=== PATIENT | male | born 1945 | race Caucasian/White ===

== ENCOUNTER 2024-02-02 21:43 | Inpatient (IN) | payer MEDICARE, BC, SELFPAY ==
[2024-02-02] VITALS (7 sets, daily range): BP systolic 105–151; BP diastolic 61–81; BMI 23.9
--- NOTE | 2024-02-02 16:08 | CM ---
CM was consulted for Eliquis pricing. CM spoke with patient's pharmacy and confirmed cost of $71. CM will provide Eliquis coupon to patient. CM will await final disposition.
--- NOTE | 2024-02-02 16:50 | W.PN.UPDATE ---
Update Note
Progress Note Update
Contacted by ED regarding patients RLE DVT
History of intracranial hemorrhage by report
RLE venous duplex demonstrates occlusive thrombus of the right common femoral, femoral, popliteal, and peroneal veins.
I have asked the ED to obtain a CT venogram of the abdomen/pelvis to evaluate the iliac veins and IVC.
Need to clarify if he is a candidate for anticoagulation given his history of
Will need CT head, neurology, neurosurgery input
Not a candidate for tpa given his history of intracranial hemorrhage. Unclear if mechanical thrombectomy is an option but need to clarify anticoagulation first. May need IVC filter (IR).
Chadd Dahl III, MD
[facility] Vascular Surgery
[phone] (mlrj)
[2024-02-02 17:12] LABS: % Basophils 0.3 % (0-2); % Eosinophils 0.7 % (0-6); % Immature Granulocytes 0.6 % (0-0.5); % Lymphocytes 19.4 % (20.5-51.1); % Monocytes 11.8 % (1.7-9.3); % Neutrophils 67.2 % (42.2-75.2); Absolute Eosinophils 0.1 10^3/uL (0-0.7); Absolute Lymphocytes 1.3 10^3/uL (1.2-3.4); Absolute Monocytes 0.8 10^3/uL (0.1-0.6); Absolute Neutrophils 4.6 10^3/uL (1.4-6.5); Hematocrit 39.2 % (39.0-52.0); Hemoglobin 13.5 g/dL (13.0-18.0); Mean Corp Hgb Conc. 34.4 g/dL (33.0-37.0); Mean Corpuscular Hgb 34.2 pg (27.0-31.0); Mean Corpuscular Volume 99.2 fL (80.0-94.0); Mean Platelet Volume 8.6 fL (7.4-10.4); Nucleated Red Blood Cells % 0 % (-); Platelet Count 206 10^3/uL (130-400); Red Blood Cell Count 3.95 10^6/uL (4.70-6.10); Red Cell Dist. Width 12.8 % (11.5-14.5); White Blood Cell Count 6.9 10^3/uL (4.8-10.8)
[2024-02-02 17:22] LABS: INR 1.16; PT 14.9 Sec (11.4-14.6)
[2024-02-02 17:23] LABS: APTT 34.8 Sec (23.4-35.0)
[2024-02-02 17:26] LABS: ALT (SGPT) 25 U/L (0-50); AST (SGOT) 29 U/L (17-59); Albumin 3.6 g/dl (3.5-5.0); Alkaline Phosphatase 82 U/L (38-126); Blood Urea Nitrogen 19 mg/dl (9-20); Calcium 8.9 mg/dl (8.4-10.2); Carbon Dioxide 32 mmol/L (22-30); Chloride 105 mmol/L (98-107); Glucose 80 mg/dl (70-99); Potassium 4.2 mmol/L (3.5-5.1); Sodium 141 mmol/L (135-145); Total Bilirubin 0.6 mg/dl (0.2-1.3); Total Protein 6.4 g/dl (6.3-8.2); eGFR > 60.00
--- NOTE | 2024-02-02 18:42 | ED.GENMED ---
History of Present Illness
General
Chief Complaint: DVT/Possible Blood Clot
Source: patient and family
Exam Limitations: none
Time Seen by Provider: 02/02/24 15:40
Nursing documentation reviewed up to this point in time: agreed with
History of Present Illness
History of Present Illness:
78 y/o M
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
had covid 2 weeks ago, was hospitlized, having trouble walking, went to rehab for some physical therpay but has been home and family noticed swelling righ tloewr extremity
remote history of dvt years ago
had US outpatient ordered by PCP today and has extensive DVT in RLE, common femoral, femoral, popliteal, peroneal veins
pt has no cp, sob
he is on keppra
sees neurologist out of [facility]'
apparently had head ct 2 weeks ago when he was having trouble walking while admitted and it was 'negative' according to the
no fever,chills, abdominal pain,
leg is perfused.
Past History
Past History
ED Past Medical History: HTN, Hypercholesterolemia, Other (ICH) and Other (dvt, seizure)
Social History
Tobacco: Non-smoker
Alcohol: None
Drug: None
Personal:
Living: with family
Phy Exam
Physical Exam
Physical Exam:
GENERAL: Alert , in no apparent distress
EYE: pupils equal and reactive
NECK: Supple
ENT: o/p clr, mmm.
CARDIAC: Regular rate and rhythm .
dp pulse normal right
perfused
warm
LUNGS: Clear breath sounds bilaterally, no acute respiratory distress, no wheezes/rales/rhonchi
ABDOMEN: Soft, without focal tenderness, no r/g, no cvat, normal bowel sounds
NEUROLOGICAL: Alert and oriented, no focal neuro deficits
SKIN: Warm and dry, skin intact.
MUSCULOSKELETAL: mod swelling calf, soft, no compartment syndrome, sensation intact
PSYCH: Normal and appropriate interaction.
Course
Orders/Labs/Results
Orders:
Orders
02/02/24 16:01
Case Management Consult ONCE
Case Management Consult: Other
02/02/24 16:26
CT Pe/abd/pel W Urgent
Reason For Exam: extensive dvt; VENOGRAM
02/02/24 16:29
Electrocardiogram (*1) Urgent
Reason for Study: Other
Other Reason for Exam: dvt
EKG- Treatment ONCE
02/02/24 17:01
Complete Blood Count/With Diff Urgent
Comprehensive Metabolic Panel Urgent
PTT Urgent
Prothrombin Time Urgent
02/02/24 18:34
CT Head W/o Iv Contrast Urgent
Comment:
Reason For Exam: h/o ICH
02/02/24 20:[address] Non Medication Order As Directed
Physician Order: PTT 6 hours after initial start of Heparin infusion
02/02/24 20:45
Heparin 76240 Units/250 ml 25,000 units in 250 ml IV PER PROTOCOL
Weight to be used for heparin protocol in kilograms (kg):: 78.9
Protocol:: DVT/PE
PTT Goal Range to be used:: PTT 73 to 111 seconds
Order type:: Initial
INITIAL Infusion Dose (UNITS/KG/hr) & then follow protocol:: 18 units/kg/hr
Infusion Dose in UNITS/hr & then follow protocol (UNITS/hr):: 1,400
INFUSION RATE in mL/hr & then follow protocol (mL/hr):: 14
For DVT/PE algorithm, re-bolus for low PTT?: No
PTT less than or equal to 64 seconds:: No Re-bolus. Increase by 300 units/hr (+ 3mL/hr)
PTT 64.1 to 72.9 seconds:: No Re-bolus. Increase by 200 units/hr (+ 2mL/hr)
PTT 73 to 111 seconds:: Target Range. No change in rate.
PTT 111.1 to 130.9 seconds:: Decrease rate by 200 units/hr (- 2 mL/hr)
PTT 131 to 199.9 seconds:: HOLD for 1 hr. Then decrease by 200 units/hr (- 2mL/hr)
PTT greater than or equal to 200 seconds:: HOLD for 2 hrs & Notify Provider. Then decrease by 300 units/hr
(- 3mL/hr)
Lab follow-up:: Each change, PTT q6h until 2 consecutive are therapeutic. Then
PTT daily.
02/02/24 21:10
Admit/Transfer Patient As Directed
Co-Sign Provider:
Level of Care: Inpatient admission
Assign to:: Medical/Surgical
Physician / Group: Hospitalist
Diagnosis: RLE DVT, RLL subsegmantal PE
Reason for Hospitalization: DVT/PE
Expected length of stay greater than two midnights?: Yes
ELOS- Estimated Length of Stay in days: 2
I certify the patient meets the requirements for IP care: Yes
PRN Pain Medication Management As Directed
May give lesser potent ordered pain med per pt: Yes
preference::
Protocol:: Medication orders for pain may be administered in a
manner that supports deferring to patient preference
when the pt is:
- Requesting an ordered lesser potent pain medication.
Least to most potent pain medications are defined
as: acetaminophen < NSAID < tramadol < opioids
(morphine, oxycodone, hydromorphone).
- Requesting a lesser dose of the same medication IF
ORDERED.
- Requesting a less intrusive route of administration
if both routes are prescribed by the provider (PO <
IV).
02/02/24 21:11
Code Status As Directed
Resuscitation Status: Full Code
02/02/24 21:14
Heparin 3,200 units IV PRN PRN
Heparin 6,300 units IV PRN PRN
02/02/24 21:15
Heparin [id number] Units/250 ml 25,000 units in 250 ml .ROUTE .STK-MED
02/02/24 21:30
Levetiracetam [Keppra] 750 mg PO BID
02/02/24 22:00
Buspirone [Buspar] 5 mg PO TID
Flush (0.9% Sodium Chloride) [Flush (Nss)] See Dose Instructions IV PER PROTOCOL
02/03/24 08:00
FOLic ACID [Folvite] 1 mg PO DAILY
levetiracetam 750 mg PO BID
magnesium oxide 400 mg PO DAILY
02/03/24 18:00
Atorvastatin [Lipitor] 10 mg PO QPM
Abnormal Lab Results
02/02/24
17:01
RBC 3.95 L 10^6/uL
(4.70-6.10)
MCV 99.2 H fL
(80.0-94.0)
MCH 34.2 H pg
(27.0-31.0)
Absolute Monos (auto) 0.8 H 10^3/uL
(0.1-0.6)
Immature Gran % 0.6 H %
(0-0.5)
Lymphocytes % 19.4 L %
(20.5-51.1)
Monocytes % 11.8 H %
(1.7-9.3)
PT 14.9 H Sec
(11.4-14.6)
Carbon Dioxide 32 H mmol/L
(22-30)
02/02/24 17:01
02/02/24 17:01
Vital Signs
Initial and Last Documented VS:
Initial Vital Signs
Temp Pulse Resp BP Pulse Ox
98.2 F 77 18 111/61 98
02/02/24 15:01 02/02/24 15:01 02/02/24 15:01 02/02/24 15:01 02/02/24 15:01
Last Documented Vital Signs
Temp Pulse Resp BP Pulse Ox
98.2 F 81 14 113/77 98
02/02/24 15:01 02/02/24 20:15 02/02/24 19:26 02/02/24 20:10 02/02/24 20:15
MDM/Problems Addressed
Differential Diagnosis Includes:
dvt, pe,
MDM/Problems Addressed:
lydiaheikekevin hollandmanolo 78 y/o M
had covid 2 weeks ago, hospitalized, a bit immobile; has had RLE swelling
had outpatietn US with clot common femoral, femoral, popliteal, peroneal
pt 2years ago had spontaneous ICH on asa x 2, is on keppra, seen by neuro at [facility]
i spoke with vascular (sonia vale) who recommended ct a/p iliac and we included the chest too and then would defer AC after neuro consult
i spoke with [employer] neuro territory sales consultant but he was unhelpful, didn't know the patient and didn't know about his previous ICH
consutled neuro here (dr. taylor) who said ct head is neg, then heparin drip, no bolus, repeat head ct in the AM;
pt's c/a/p CT shows subsegmental PE; no other clot burden proximally in abd; hemo stable; head ct neg;
heparin drip
*Critical Care Note
Total Time (30-74mins, 75-104mins- exclusive of procedures): Not Applicable
ED Attending Note
-
Portions of this chart may have been created with voice recognition software.� Occasional wrong word or��sound alike� substitutions may have occurred due to the inherent limitations of voice recognition software.
Discharge Plan
Departure
Patient Disposition: Admit
Date of Disposition: 02/02/24
Time of Disposition: 19:51
Admit to: Telemetry
Presentation/result/management discussed w/ accepting MD/DO: Hospitalist
Condition: Fair
Covid-19: Not Applicable
Discharge Problem:
DVT (deep venous thrombosis)
Prescriptions:
No Action
atorvastatin 10 mg Tablet
10 mg PO QPM
levetiracetam 750 mg Tablet
750 mg PO BID
buspirone 5 mg tablet
5 mg PO TID
folic acid 1 mg Tablet
1 mg PO DAILY
magnesium oxide 400 mg magnesium Tablet
400 mg PO DAILY
Interventions
Interventions:
*Risk Screen - Suicide Last Done: 02/02/24 15:01
*General Assessment Last Done: 02/02/24 15:01
*Neglect/Abuse Screening Last Done: 02/02/24 15:01
ED- Cardiac Assessment Last Done: 02/02/24 18:02
ED- Pulmonary Assessment Last Done: 02/02/24 18:02
ED-Peripheral Vascular Assessment Last Done: 02/02/24 18:02
ED-Skin Assessment Last Done: 02/02/24 18:02
Discharge Date and Time
Print Language: THAI
--- NOTE | 2024-02-02 20:54 | HPS.HSE ---
Family Physician
-
Family Physician: Edinson Jackson
Chief Complaint
-
Right lower extremity swelling
History of Present Illness
This is a 78-year-old male was past medical history of intracranial bleeding while on aspirin,Hyperlipidemia, recent diagnosis of COVID 2 weeks ago for which he was hospitalized and immobile presenting to the emergency department with right lower
extremity swelling and outpatient ultrasound with a clot in the right common femoral, femoral, popliteal and peroneal clots.
Due to his prior brain injury the patient is moist oriented. He is alert and oriented x 3 but cannot provide much significant history. He denies having any chest pain shortness of breath. He denies any calf tenderness or pain in the lower
extremities. Besides a hospitalization for COVID 2 weeks ago he denies any recent travels. He denies any prior history of DVT. Unclear whether he has been on anticoagulation in the past.
In the ED the patient was afebrile, hemodynamically stable and in no acute distress. CT of the head was negative. He had a CT of the abdomen pelvis which showed the extent of the clot to the distal right common femoral. He also has a small right
lower lobe subsegmental PE. His ECG showed normal sinus rhythm with a known right bundle which is unchanged from prior. Chemistries were normal. CBC was unremarkable.
Medical History
Past Medical History
Past Medical History: Reports Other (spontaneous intracranial hemorrhage)
Past Surgical History: Reports None
Social History
Tobacco: Non-smoker
Alcohol: None
Drug: None
Personal:
Living: With Family
Employment: Not Employed
Family History
Family History: Not pertinent
Allergies / Home Medications
Allergies reflects when Allergies were last updated in [employer].
Home Medications with original date entered in [employer]
Allergy/Medication List:
Allergies
Allergy/AdvReac Type Severity Reaction Status Date / Time
Sulfa (Sulfonamide Allergy Unknown Verified 02/02/24 15:01
Antibiotics)
Home Medications
atorvastatin 10 mg tablet 10 mg PO QPM 12/10/21
levetiracetam 750 mg tablet 750 mg PO BID 12/10/21
buspirone 5 mg tablet 5 mg PO TID 02/02/24
folic acid 1 mg tablet 1 mg PO DAILY 02/02/24
magnesium oxide 400 mg PO DAILY 02/02/24
Review of Systems
-
History Source: Patient
Constitutional: Reports No Symptoms
EENT: Reports No Symptoms
Respiratory: Reports No Symptoms
Cardiac: Reports No Symptoms
Abdomen/GI: Reports No Symptoms
: Reports No Symptoms
Musculoskeletal: Reports No Symptoms
Skin: Reports No Symptoms
Neurological: Reports No Symptoms
Endocrine: Reports No Symptoms
Hematologic/Lymphatic: Reports No Symptoms
Psych: Reports No Symptoms
Physical Exam
Vital Signs
Vital Signs
Temp Pulse Resp BP Pulse Ox
98.2 F 81 14 113/77 98
02/02/24 15:01 02/02/24 20:15 02/02/24 19:26 02/02/24 20:10 02/02/24 20:15
Physical Exam
General: Well Developed, Well Nourished, No Apparent Distress, Comfortable and Conversant
HEENT: NormoCephalic, Anicteric, Moist mucous membranes and Atraumatic
Respiratory: Clear
Cardiac: S1/S2 and Regular Rhythm
GI: Soft, Non Tender, Non Distended and Normal Bowel Sounds
Rectal: Deferred by Provider
Genito-urinary: Deferred by me
Musculoskeletal: No Clubbing, No Cyanosis and Edema, Right Lower Extremity
Skin: Warm
Neuro: Awake, Alert and Oriented (x2)
Hematologic/Lymphatic: No Lymphadenopathy
Psych: Calm
Laboratory Results
-
02/02/24 17:01
02/02/24 17:01
Laboratory Results
PT 14.9 Sec (11.4-14.6) H 02/02/24 17:
INR 1.16 02/02/24 17:
APTT 34.8 Sec (23.4-35.0) 02/02/24 17:
Total Bilirubin 0.6 mg/dl (0.2-1.3) 02/02/24 17:
AST 29 U/L (17-59) 02/02/24 17:
ALT 25 U/L (0-50) 02/02/24 17:
Alkaline Phosphatase 82 U/L (38-126) 02/02/24 17:01
Data Reviewed
-
Diagnostic Radiology: Image Personally Visualized and interpreted
CT Scan: Report Reviewed by me
Medical Tests (Nuc Med, Echo, EKG etc): Image Personally Visualized and interpreted
Lab Data: Labs Reviewed by me
Impression/Plan
-
IMPRESSION:
PLAN:
ACUTE RLE DVT -patient with a history of intracranial bleed with reduced spontaneous on aspirin (2 years ago, on seizure prophylaxis with Keppra and will review he was recently hospitalized 2 weeks ago in the setting of COVID presents to the
emergency department with right lower extremity swelling. He is otherwise asymptomatic. He had a outpatient ultrasound which shows DVT to the common femoral. CT of the abdomen pelvis confirms DVT to the common femoral. There also appears to be a
right lower lower lobe subsegmental PE. He has no respiratory symptoms. He has no chest pain. He has no lower extremity pain. Pulses are intact bilaterally. Due to history of intracranial bleed this case was discussed with neurology. He had a
CT of the head which was negative. Due to negative CT the patient could be anticoagulated starting with heparin.
- admit to med surg
- heparin gtt w/o bolus with close monitoring.
- likely provoked VTE in setting of hospitalization would hold off further w/u for now
IC
- continue statin and keppra for sez ppx
Full Code
[2024-02-02] MEDS: HEPARIN 25000 UNITS/250 ML IV (21:22)
[2024-02-02] MEDS: KEPPRA 750 MG PO (23:04)
[2024-02-02] MEDS: BUSPAR 5 MG PO (23:04)
[2024-02-03 03:39] LABS: Hematocrit 37.3 % (39.0-52.0); Hemoglobin 13.2 g/dL (13.0-18.0); Mean Corp Hgb Conc. 35.4 g/dL (33.0-37.0); Mean Corpuscular Hgb 34.7 pg (27.0-31.0); Mean Corpuscular Volume 98.2 fL (80.0-94.0); Mean Platelet Volume 8.7 fL (7.4-10.4); Platelet Count 196 10^3/uL (130-400); Red Cell Dist. Width 12.5 % (11.5-14.5); White Blood Cell Count 7.4 10^3/uL (4.8-10.8)
[2024-02-03 03:59] LABS: APTT 161.6 Sec (23.4-35.0)
[2024-02-03 06:00] VITALS: BMI 23.8
[2024-02-03 08:00] VITALS: BP 125/69
[2024-02-03] MEDS: KEPPRA 750 MG PO ×2 (08:22→20:31)
[2024-02-03] MEDS: MAG-TAB SR 84 MG PO (08:22)
[2024-02-03] MEDS: FOLVITE 1 MG PO (08:22)
[2024-02-03] MEDS: BUSPAR 5 MG PO ×3 (08:24→21:56)
[2024-02-03 10:59] LABS: APTT 156.3 Sec (23.4-35.0)
--- NOTE | 2024-02-03 12:42 | CM ---
Patient seen at bedside along with Larisa.
dX: RLE DVT, RLL Subsegmental PE
PMH: Intracranial bleed 2 yrs ago, HDL
CT head negative
states patient was receiving home services thorough [facility].
She also states approximately 01/24 was at [facility] after having Covid.
CM received a call from Lindsey Carson from [facility].
Referral to [facility] placed in Care port.
PLAN: Discharge when medically stable, TOÑA with [facility].
[facility]
Fax #: [phone]
--- NOTE | 2024-02-03 12:49 | W.PN.HOSP.TC ---
Today's Communication/Plan
-
see note
Assessment / Plan
Assessment / Plan
CT a/p
Isolated small to filling defect in the right lower lobe lateral subsegmental pulmonary artery, consistent with pulmonary embolism. No evidence to suggest right ventricular heart strain.
Right lower extremity thrombus is demonstrated to the level of the distal common femoral vein. Otherwise, external iliac and common iliac veins are patent, without evidence of thrombus. No IVC thrombus.
Venous doppler
Occlusive thrombus of the right common femoral, femoral, popliteal, and peroneal veins.

1. Right lower extremity DVT
Right lower lobe PE
History of PE in 2011
-Clot likely from recent COVID infection related hypercoagulability
-Patient have history of PE in 2011 and was on short course of oral Eliquis therapy
-Patient had new onset of right leg swelling and had an outpatient ultrasound showing right common femoral/femoral/popliteal/peroneal vein DVT
-On CT abdomen pelvis incidentally patient noted to having right lower lobe PE as well. No signs of RV strain
-Patient was started on heparin drip
-Patient has history of hemorrhagic stroke in , no further issues afterward.
-Hematology evaluation requested in light of history of brain bleed and need of anticoagulation
2. Urinary incontinence
H/o urinary retention
-For treatment of COVID infection patient was admitted to [facility] earlier this month
-Patient required catheterization for urinary retention which was removed. Patient had some hematuria/UTI per verbal report from family
-Currently patient incontinent and continue to pull off condom catheter
-Renal bladder ultrasound ordered. Check UA.
-Continue monitoring postvoid residual and may require Dahl catheter insertion if retaining urine
-Family requested urology evaluation discussed that we will need to follow-up in office
3. History of hemorrhagic CVA
-Get records from [facility] to further determine the extent of bleed
-No residual weakness and patient able to ambulate without walker or cane according to spouse
-Patient on levetiracetam for seizure prophylaxis with history of hemorrhagic CVA although no reported seizures ever
4. HLD
-Maintain on atorvastatin
5. Anxiety/depression
-Continue on buspirone
DVT PPX - heparin drip
Full code
Care plan discussed with spouse at bedside
Total time spent : 53 mins
I personally saw and examined the patient.
I have reviewed all diagnostic interpretations and treatment plans as written.
Time includes patient management by me, time spent at the patients bedside, time to review lab and imaging results, discussing patient care, documentation in the medical record, and time spent with the family or caregiver and discussing care plan
with RN/Consultants.
Anticipated Discharge: 24 - 48 hours
Subjective/Interval History
-
Date of Service: February 03, 2024
Having urinary incontinence
Denies any right lower extremity pain/discomfort
No other issues reported overnight
Objective Data
-
Labs:
Laboratory Results
02/03/24 02/03/24 02/03/24
03:31 09:59 18:00
WBC 7.4
Hgb 13.2
Hct 37.3 L
Plt Count 196
APTT 161.6 H* 156.3 H* Pending
Vital Signs:
Vital Signs
Temp Pulse Resp BP Pulse Ox
97.9 F 75 16 125/69 97
02/03/24 08:00 02/03/24 08:00 02/03/24 08:00 02/03/24 08:00 02/03/24 08:00
I&O
02/02/24 02/03/24 02/04/24
06:59 06:59 06:59
Output Total 400 / 400
Balance -400 / -400
Review of Systems
-
Respiratory: Reports No Symptoms
Cardiac: Reports No Symptoms
Abdomen/GI: Reports No Symptoms
Physical Exam
-
General: No Apparent Distress and Comfortable
HEENT: Negative Oxygen
Respiratory: Clear to Auscultation
Cardiac: Regular Rhythm and S1/S2; Negative Murmur or Rub
GI: Soft, Nontender, Nondistended and Normal Bowel Sounds
Musculoskeletal: No Edema
Neuro: Awake, Alert, Oriented, No Motor Deficits and Nonfocal/Grossly Intact
Psych: Calm
--- NOTE | 2024-02-03 13:00 | PTCARENOTE ---
Pt PTT resulted at 11:00am 156.3, per protocol was held for 1hr and decrease 2ml/hr. Held heparin from 11:15-12:15, restarted at 12:15 at 10mls/hr per protocol. Next ptt draw/ lab at 1800 sechuled. plan of care ongoing. No s/s of distress noted.
--- NOTE | 2024-02-03 14:27 | CM ---
PCP: Edinson Jackson
Pharmacy: [facility] in [place]
Denies any food/utilities/housing/transportation insecurities.
[2024-02-03 14:45] VITALS: BP 129/69; PULSE 97
[2024-02-03 15:07] VITALS: BP 125/66
[2024-02-03] MEDS: LIPITOR 10 MG PO (17:03)
[2024-02-03 18:26] LABS: APTT 106.9 Sec (23.4-35.0)
[2024-02-03] MEDS: HEPARIN 25000 UNITS/250 ML IV (20:31)
[2024-02-03 23:27] VITALS: BP 119/66
[2024-02-04 01:26] LABS: APTT 115.1 Sec (23.4-35.0)
[2024-02-04] MEDS: SAPHRIS 2.5 MG SL (02:29)
[2024-02-04 07:58] VITALS: BP 124/73
[2024-02-04 08:22] LABS: Hematocrit 41.3 % (39.0-52.0); Hemoglobin 14.1 g/dL (13.0-18.0); Mean Corp Hgb Conc. 34.1 g/dL (33.0-37.0); Mean Corpuscular Hgb 34.2 pg (27.0-31.0); Mean Corpuscular Volume 100.2 fL (80.0-94.0); Mean Platelet Volume 8.8 fL (7.4-10.4); Platelet Count 204 10^3/uL (130-400); Red Blood Cell Count 4.12 10^6/uL (4.70-6.10); Red Cell Dist. Width 12.9 % (11.5-14.5); White Blood Cell Count 5.5 10^3/uL (4.8-10.8)
[2024-02-04 08:27] LABS: APTT 81.9 Sec (23.4-35.0)
--- NOTE | 2024-02-04 08:56 | W.PN.HOSP.TC ---
Addendum entered and electronically signed by Otto Amos MD 02/04/24 13:16:
I saw and evaluated the patient. I reviewed the resident�s note and agree with findings and plan as documented in the resident�s note.
There were no problems overnight except some episode of confusion.
Right LE DVT/RLL PE -likely from recent COVID related. Outpatient ultrasound showed blood clot.Currently on heparin drip. get records from [facility] regarding hospitalization in . will likely transition to Eliquis if agreed by hematology.
Urinary incontinence - Renal/bladder US neg. have condom catheter on. will need OP urology follow up and evaluation
PT evaluated and recommended SNF vs home HH
Original Note:
Today's Communication/Plan
-
Continue heparin for DVT
Check renal and bladder ultrasound
Assessment / Plan
Assessment / Plan
Impression:
78-year-old male presents with new onset right leg swelling, outpatient ultrasound demonstrating right leg DVT, also noted to have subsegmental RLL pulmonary embolism on CT
#Right lower extremity DVT
#Right lower lobe PE
-Clot likely from recent COVID infection related hypercoagulability
-Patient have history of PE in 2011 and was on short course of oral Eliquis therapy
-Patient had new onset of right leg swelling and had an outpatient ultrasound showing right common femoral/femoral/popliteal/peroneal vein DVT
-On CT abdomen pelvis incidentally patient noted to having right lower lobe PE as well. No signs of RV strain
-Patient was started on heparin drip, currently day 3
-Today patient is not short of breath, no pleuritic chest pain, no lower extremity swelling, erythema or pain on palpation
-Patient has history of hemorrhagic stroke in , no further issues afterward.
-Hematology evaluation for oral anticoagulation pending
#Urinary incontinence
-Patient has a history of urinary retention
-For treatment of COVID infection patient was admitted to [facility] earlier this month
-Patient required catheterization for urinary retention which was removed. Patient had some hematuria/UTI per verbal report from family
-Currently patient incontinent and continue to pull off condom catheter
-Renal bladder ultrasound pending.
-UA with reflex culture pending.
-Continue monitoring postvoid residual and may require Dahl catheter insertion if retaining urine
-Family requested urology evaluation discussed that we will need to follow-up in office
#History of hemorrhagic CVA
-Get records from [facility] to further determine the extent of bleed
-No residual weakness and patient able to ambulate without walker or cane according to spouse
-Patient on levetiracetam for seizure prophylaxis with history of hemorrhagic CVA although no reported seizures ever
#HLD
-Maintain on atorvastatin
#Anxiety/depression
-Continue on buspirone
Diet: Regular
DVT PPX - heparin drip
CODE STATUS: Full code
Anticipated Discharge: 24 - 48 hours
Subjective/Interval History
-
Date of Service: February 04, 2024
Nurse reports patient had episode of restless overnight, patient was reportedly pulling off his condom catheter and got mitts restraints
Patient currently not requiring mitts and was not restless during my exam in the morning
Objective Data
-
Labs:
Laboratory Results
02/04/24 02/04/24
01:06 07:45
WBC 5.5
Hgb 14.1
Hct 41.3
Plt Count 204
APTT 115.1 H 81.9 H
Vital Signs:
Vital Signs
Temp Pulse Resp BP Pulse Ox
97.1 F 86 16 124/73 99
02/04/24 07:58 02/04/24 07:58 02/04/24 07:58 02/04/24 07:58 02/04/24 07:58
I&O
02/03/24 02/04/24 02/05/24
06:59 06:59 06:59
Intake Total 2079
Output Total 400 / 400 1650 / 1650
Balance -400 / -400 430 / 430
Review of Systems
-
History Source: Patient
Constitutional: Reports No Symptoms
Respiratory: Reports No Symptoms; Denies Hemoptysis or Trouble Breathing
Cardiac: Reports No Symptoms
Abdomen/GI: Reports No Symptoms
Physical Exam
-
General: Well Developed, Well Nourished, No Apparent Distress, Comfortable and Conversant
Respiratory: Clear to Auscultation
Cardiac: Regular Rhythm and S1/S2
GI: Soft, Nontender, Nondistended and Normal Bowel Sounds
Musculoskeletal: No Edema and Other (No calf tenderness bilaterally, no swelling bilaterally, no erythema bilaterally)
Skin: Warm and Dry
Neuro: Awake, Alert, Oriented and AO x 3
Psych: Calm and Intact Judgement/Insight
Data Reviewed
-
CT Scan: Report Reviewed by me and Discussed with Physician
Labs: Labs Reviewed by me and Discussed with Physician
[2024-02-04] MEDS: BUSPAR 5 MG PO ×3 (08:59→20:40)
[2024-02-04] MEDS: FLOMAX 0.4 MG PO (08:59)
[2024-02-04] MEDS: FOLVITE 1 MG PO (08:59)
[2024-02-04] MEDS: KEPPRA 750 MG PO ×2 (08:59→20:39)
[2024-02-04] MEDS: MAG-TAB SR 84 MG PO (08:59)
[2024-02-04 14:42] LABS: APTT 86.4 Sec (23.4-35.0)
[2024-02-04 15:00] VITALS: BP 112/63
--- NOTE | 2024-02-04 15:00 | CON.ONC ---
Impression
Impression
Hx brain bleed
Extensive DVT provoked by COVID with hospitalization and immobilization
Plan
Plan
Case D/w pt's neurologist Dr. Jiménez at [facility] via [facility].
Recommends against anticoagulation unless no other option.
Pt's does not have a long life expectancy due to age, and has no symptoms or O2 req from PE. Risk vs benefit favors IVC filter placement rather than anticoagulation.
Please consult IR for filter.
Does not need follow up from my standpoint but we would be happy to see him down the road if Dr. Jackson wants to refer him for F/U.
Thank you for consultation.
Patient History
History of Present Illness
This is a 78-year-old male was past medical history of intracranial bleeding while on aspirin,Hyperlipidemia, recent diagnosis of COVID 2 weeks ago for which he was hospitalized and immobile presenting to the emergency department with right lower
extremity swelling and outpatient ultrasound with a clot in the right common femoral, femoral, popliteal and peroneal clots. Prior history of cerebral bleeds, pt of Dr. Jiménez, [facility]. Pt awake and alert but poor historian and requires for
history and decision-making.
Past-Medical/Surgical History
Past Medical History
Past Medical History: Reports Other (spontaneous intracranial hemorrhage)
Past Surgical History: Reports None
Social History
Tobacco: Non-smoker
Alcohol: None
Drug: None
Personal: , accompanied today by Larisa
Living: With Family
Employment: Not Employed
Family History
Family History: Not pertinent
Patient Medication
�Medication �Instructions �Recorded �Confirmed �Last Taken �Type
atorvastatin 10 mg tablet 10 mg PO QPM High Cholesterol 12/10/21 02/02/24 02/01/24 History
levetiracetam 750 mg tablet 750 mg PO BID Seizures 12/10/21 02/02/24 02/02/24 History
buspirone 5 mg tablet 5 mg PO TID Depression 02/02/24 02/02/24 02/02/24 History
folic acid 1 mg tablet 1 mg PO DAILY Supplement 02/02/24 02/02/24 02/02/24 History
magnesium oxide 400 mg PO DAILY Supplement 02/02/24 02/02/24 02/02/24 History
Active Medications
Generic Name Dose Route Start Last Admin
Trade Name Freq PRN Reason Stop Dose Admin
Acetaminophen 650 mg 02/02/24 23:53
Acetaminophen 325 Mg Tablet PO 03/01/24 23:52
Q4HPRN PRN
mild pain/SAENZ/temp> 100.4F
Atorvastatin Calcium 10 mg 02/03/24 18:00 02/03/24 17:03
Atorvastatin (Lipitor) 10 Mg Tablet PO 03/02/24 17:59 10 mg
QPM PABLITO Administration
Bisacodyl 10 mg 02/02/24 23:53
Bisacodyl 10 Mg Rectal Suppository RECTAL 03/01/24 23:52
[id number] PRN
constipation
Buspirone HCl 5 mg 02/02/24 22:00 02/04/24 08:59
Buspirone 5 Mg Tablet PO 03/01/24 21:59 5 mg
TID PABLITO Administration
Folic Acid 1 mg 02/03/24 08:00 02/04/24 08:59
Folic Acid 1 Mg Tablet PO 03/02/24 07:59 1 mg
DAILY PABLITO Administration
Heparin Sodium 25,000 units in 250 mls @ 0 mls/hr 02/04/24 08:00
Heparin 23640 Units/250 Ml IV
PER PROTOCOL PABLITO
Protocol
Per Protocol
Levetiracetam 750 mg 02/03/24 08:00 02/04/24 08:59
Levetiracetam 500 Mg Regular Release Tablet PO 03/02/24 07:59 750 mg
BID PABLITO Administration
Magnesium 84 mg 02/03/24 08:00 02/04/24 08:59
Magnesium Lactate 84 Mg Tablet PO 03/02/24 07:59 84 mg
DAILY PABLITO Administration
Polyethylene Glycol 17 grams 02/02/24 23:53
Polyethylene Glycol Powder 17 Grams Packet PO 03/01/24 23:52
DAILYPRN PRN
constipation
Senna/Docusate Sodium 1 tablet 02/02/24 23:53
Docusate W/Senna (Sushila-Colace) Tablet PO 03/01/24 23:52
BIDPRN PRN
constipation
Sodium Chloride 0 flush 02/02/24 22:00
Sodium Chloride 0.9% (Flush) Syringe IV 03/01/24 21:59
PER PROTOCOL PABLITO
Tamsulosin HCl 0.4 mg 02/03/24 13:02 02/04/24 08:59
Tamsulosin 0.4 Mg Capsule PO 03/02/24 12:59 0.4 mg
DAILY PABLITO Administration
Review of Systems
-
History Source: Family and Records
All Other Systems: Reviewed and Negative
Physical Exam
-
Awake, alert, non-toxic appearing
Heart RRR
Breath sounds clear
Abd soft, non-tender
Extrem RLE edema
Labs
Lab Results
WBC 5.5 10^3/uL (4.8-10.8) 02/04/24 07:45
RBC 4.12 10^6/uL (4.70-6.10) L 02/04/24 07:45
Hgb 14.1 g/dL (13.0-18.0) 02/04/24 07:45
Hct 41.3 % (39.0-52.0) 02/04/24 07:45
MCV 100.2 fL (80.0-94.0) H 02/04/24 07:45
MCH 34.2 pg (27.0-31.0) H 02/04/24 07:45
MCHC 34.1 g/dL (33.0-37.0) 02/04/24 07:45
RDW 12.9 % (11.5-14.5) 02/04/24 07:45
Plt Count 204 10^3/uL (130-400) 02/04/24 07:45
MPV 8.8 fL (7.4-10.4) 02/04/24 07:45
Abs Immat Gran (auto) 0.0 10^3/uL (0-0.05) 02/02/24 17:01
Absolute Neuts (auto) 4.6 10^3/uL (1.4-6.5) 02/02/24 17:01
Absolute Lymphs (auto) 1.3 10^3/uL (1.2-3.4) 02/02/24 17:01
Absolute Monos (auto) 0.8 10^3/uL (0.1-0.6) H 02/02/24 17:01
Absolute Eos (auto) 0.1 10^3/uL (0-0.7) 02/02/24 17:01
Absolute Basos (auto) 0.0 10^3/uL (0-0.2) 02/02/24 17:01
Immature Gran % 0.6 % (0-0.5) H 02/02/24 17:01
Neutrophils % 67.2 % (42.2-75.2) 02/02/24 17:01
Lymphocytes % 19.4 % (20.5-51.1) L 02/02/24 17:01
Monocytes % 11.8 % (1.7-9.3) H 02/02/24 17:01
Eosinophils % 0.7 % (0-6) 02/02/24 17:01
Basophils % 0.3 % (0-2) 02/02/24 17:01
Creatinine 0.8 mg/dL (0.7-1.3) 02/02/24 17:01
Vital Signs
Vital Signs
Temp Pulse Resp BP Pulse Ox
97.1 F 86 16 124/73 99
02/04/24 07:58 02/04/24 07:58 02/04/24 07:58 02/04/24 07:58 02/04/24 10:42
--- NOTE | 2024-02-04 16:05 | CM ---
Addendum entered by Lili Carlton 02/04/24 16:12:
[facility]
Fax #: [phone]
Original Note:
Patient seen at bedside with Larisa.
procedure tomorrow in IR for filter.
PT unable to see patient today.
states would like to take him back home with [facility].
Referral in care port.
PLAN: Discharge when medically stable to home with [facility].
to transport.
--- NOTE | 2024-02-04 16:37 | PTCARENOTE ---
Per IR pt to get an IVC filter placed tomorrow, cannot confirm time yet. No eating restrictions. will be contacted in the am.
[2024-02-04] MEDS: LIPITOR 10 MG PO (17:06)
[2024-02-04 23:34] VITALS: BP 126/69
[2024-02-05] VITALS (7 sets, daily range): BP systolic 90–138; BP diastolic 60–86; PULSE 79
[2024-02-05 06:14] LABS: APTT 36.4 Sec (23.4-35.0)
[2024-02-05 06:38] LABS: Hematocrit 40.1 % (39.0-52.0); Hemoglobin 13.8 g/dL (13.0-18.0); Mean Corp Hgb Conc. 34.4 g/dL (33.0-37.0); Mean Corpuscular Hgb 34.6 pg (27.0-31.0); Mean Corpuscular Volume 100.5 fL (80.0-94.0); Mean Platelet Volume 9.1 fL (7.4-10.4); Platelet Count 187 10^3/uL (130-400); Red Blood Cell Count 3.99 10^6/uL (4.70-6.10); Red Cell Dist. Width 13.1 % (11.5-14.5); White Blood Cell Count 7.2 10^3/uL (4.8-10.8)
[2024-02-05 07:01] LABS: Blood Urea Nitrogen 22 mg/dl (9-20); Carbon Dioxide 22 mmol/L (22-30); Chloride 106 mmol/L (98-107); Estimated Creatinine Clearance 69 ml/min; Glucose 88 mg/dl (70-99); Potassium 4.3 mmol/L (3.5-5.1); Sodium 141 mmol/L (135-145); eGFR > 60.00
[2024-02-05] MEDS: FLOMAX 0.4 MG PO (08:44)
[2024-02-05] MEDS: FOLVITE 1 MG PO (08:45)
[2024-02-05] MEDS: MAG-TAB SR 84 MG PO (08:45)
[2024-02-05] MEDS: BUSPAR 5 MG PO ×3 (08:45→20:44)
[2024-02-05] MEDS: KEPPRA 750 MG PO ×2 (08:45→20:44)
--- NOTE | 2024-02-05 12:18 | CM ---
Patient seen at bedside with .
IMM explained & signed. Placed in chart.
Await IR for filter procedure today.
PLAN: Discharge when medically stable to home with [facility].
to transport.
[facility]
Fax #: [phone]
--- NOTE | 2024-02-05 14:20 | W.PN.UPDATE ---
Update Note
Progress Note Update
I saw and evaluated the patient. I reviewed the resident�s note and agree with findings and plan as documented in the resident�s note.
No reported problems in night
CT a/p
Isolated small to filling defect in the right lower lobe lateral subsegmental pulmonary artery, consistent with pulmonary embolism. No evidence to suggest right ventricular heart strain.
Right lower extremity thrombus is demonstrated to the level of the distal common femoral vein. Otherwise, external iliac and common iliac veins are patent, without evidence of thrombus. No IVC thrombus.
Venous doppler
Occlusive thrombus of the right common femoral, femoral, popliteal, and peroneal veins.

1. Right lower extremity DVT
Right lower lobe PE
History of PE in 2011
-Clot likely from recent COVID infection related hypercoagulability
-Patient have history of PE in 2011 and was on short course of oral Eliquis therapy
-Patient had new onset of right leg swelling and had an outpatient ultrasound showing right common femoral/femoral/popliteal/peroneal vein DVT
-On CT abdomen pelvis incidentally patient noted to having right lower lobe PE as well. No signs of RV strain
-Patient has history of hemorrhagic stroke in , no further issues afterward.
-Hematology discussed with primary neurology/neurosurgery who recommended patient to get IVC filter placement. Heparin drip stopped.
-IRAD called for IVC placement and will get it today
2. Urinary incontinence
H/o urinary retention
-For treatment of COVID infection patient was admitted to [facility] earlier this month
-Patient required catheterization for urinary retention which was removed. Patient had some hematuria/UTI per verbal report from family
-Currently patient incontinent and continue to pull off condom catheter
-Renal bladder ultrasound ordered. Check UA.
-Continue monitoring postvoid residual and may require Dahl catheter insertion if retaining urine
-Family requested urology evaluation discussed that we will need to follow-up in office
3. History of hemorrhagic CVA
-Get records from [facility] to further determine the extent of bleed
-No residual weakness and patient able to ambulate without walker or cane according to spouse
-Patient on levetiracetam for seizure prophylaxis with history of hemorrhagic CVA although no reported seizures ever
4. HLD
-Maintain on atorvastatin
5. Anxiety/depression
-Continue on buspirone
6. Memory problems
-Patient with significant issues remembering things. Likely component of vascular dementia
-BCAT scoring would help better objectively quantify.
DVT PPX - SCD
Full code
--- NOTE | 2024-02-05 14:32 | W.PN.HOSP.TC ---
Today's Communication/Plan
-
IR consult for IVC filter placement
Assessment / Plan
Assessment / Plan
Impression:
78-year-old male presents with new onset right leg swelling, outpatient ultrasound demonstrating right leg DVT, also noted to have subsegmental RLL pulmonary embolism on CT
#Right lower extremity DVT
#Right lower lobe PE
-Clot likely from recent COVID infection related hypercoagulability
-Patient have history of PE in 2011 and was on short course of oral Eliquis therapy
-Patient had new onset of right leg swelling and had an outpatient ultrasound showing right common femoral/femoral/popliteal/peroneal vein DVT
-On CT abdomen pelvis incidentally patient noted to having right lower lobe PE as well. No signs of RV strain
-Patient was started on heparin drip, currently day 4
-Today patient is not short of breath, no pleuritic chest pain, no lower extremity swelling, erythema or pain on palpation
-Patient has history of hemorrhagic stroke in , no further issues afterward.
-Hematology evaluation for oral anticoagulation
-Hematology decided, based on risk versus benefit factors the patient would receive an IVC filter versus oral anticoagulation
-IR consulted for IVC filter placement
#Urinary incontinence
-Patient has a history of urinary retention
-For treatment of COVID infection patient was admitted to [facility] earlier this month
-Patient required catheterization for urinary retention which was removed. Patient had some hematuria/UTI per verbal report from family
-Currently patient incontinent and continue to pull off condom catheter
-Renal bladder ultrasound demonstrated no hydronephrosis, suspicious renal masses or evidence of stones, mildly distended urinary bladder
-UA with reflex culture pending.
-Continue monitoring postvoid residual and may require Dahl catheter insertion if retaining urine
-Family requested urology evaluation discussed that we will need to follow-up in office
#History of hemorrhagic CVA
-Get records from [facility] to further determine the extent of bleed
-No residual weakness and patient able to ambulate without walker or cane according to spouse
-Patient on levetiracetam for seizure prophylaxis with history of hemorrhagic CVA although no reported seizures ever
#HLD
-Maintain on atorvastatin
#Anxiety/depression
-Continue on buspirone
Diet: Regular
DVT PPX - heparin drip
CODE STATUS: Full code
Anticipated Discharge: 24 - 48 hours
Subjective/Interval History
-
Date of Service: February 05, 2024
Objective Data
-
Labs:
Laboratory Results
02/05/24
05:09
WBC 7.2
Hgb 13.8
Hct 40.1
Plt Count 187
APTT 36.4 H
Sodium 141
Potassium 4.3
Chloride 106
Carbon Dioxide 22
BUN 22 H
Creatinine 0.9
Glucose 88
Calcium 9.0
Vital Signs:
Vital Signs
Temp Pulse Resp BP Pulse Ox
97.4 F 85 18 134/67 98
02/05/24 07:10 02/05/24 07:10 02/05/24 07:10 02/05/24 07:10 02/05/24 07:10
I&O
02/04/24 02/05/24 02/06/24
06:59 06:59 06:59
Intake Total 2079 1620 / 1620
Output Total 1650 / 1650 2725 / 2725
Balance 430 / 430 -1105 / -1105
Review of Systems
-
Unable to obtain full review of systems at this time due to: Dementia
Physical Exam
-
General: Well Developed, Well Nourished and Comfortable
Respiratory: Clear to Auscultation
Cardiac: Regular Rhythm and S1/S2
GI: Soft, Nontender, Nondistended and Normal Bowel Sounds
Skin: Warm and Dry
Psych: Calm and Intact Judgement/Insight
Data Reviewed
-
Labs: Labs Reviewed by me and Discussed with Physician
[2024-02-05] MEDS: LIPITOR 10 MG PO (17:44)
[2024-02-05] MEDS: TYLENOL 650 MG PO (20:50)
[2024-02-06 07:05] VITALS: BP 109/65
[2024-02-06 07:19] LABS: Hematocrit 41.6 % (39.0-52.0); Hemoglobin 14.1 g/dL (13.0-18.0); Mean Corp Hgb Conc. 33.9 g/dL (33.0-37.0); Mean Corpuscular Hgb 33.1 pg (27.0-31.0); Mean Corpuscular Volume 97.7 fL (80.0-94.0); Platelet Count 199 10^3/uL (130-400); Red Blood Cell Count 4.26 10^6/uL (4.70-6.10); Red Cell Dist. Width 13.2 % (11.5-14.5)
[2024-02-06] MEDS: MAG-TAB SR 84 MG PO (07:41)
[2024-02-06] MEDS: FLOMAX 0.4 MG PO (07:42)
[2024-02-06] MEDS: BUSPAR 5 MG PO (07:42)
[2024-02-06] MEDS: FOLVITE 1 MG PO (07:42)
[2024-02-06] MEDS: KEPPRA 750 MG PO (07:42)
[2024-02-06 08:05] LABS: Blood Urea Nitrogen 21 mg/dl (9-20); Calcium 9.2 mg/dl (8.4-10.2); Carbon Dioxide 23 mmol/L (22-30); Chloride 105 mmol/L (98-107); Estimated Creatinine Clearance 77 ml/min; Glucose 89 mg/dl (70-99); Potassium 3.9 mmol/L (3.5-5.1); Sodium 142 mmol/L (135-145); eGFR > 60.00
--- NOTE | 2024-02-06 08:45 | W.PN.HOSP.TC ---
Addendum entered and electronically signed by Otto Amos MD 02/06/24 13:11:
I saw and evaluated the patient. I reviewed the resident�s note and agree with findings and plan as documented in the resident�s note.
Patient resting comfortable in bed.
No problem post IVC placement.
Patient spouse updated about follow-up plan with urology for incontinence workup.
Patient cleared by physical therapy for home discharge with home health.
Discharge home w today
Original Note:
Today's Communication/Plan
-
Monitor for postop complications
Discharge
Assessment / Plan
Assessment / Plan
Impression:
78-year-old male presents with new onset right leg swelling, outpatient ultrasound demonstrating right leg DVT, also noted to have subsegmental RLL pulmonary embolism on CT
#Right lower extremity DVT
#Right lower lobe PE
-Clot likely from recent COVID infection related hypercoagulability
-Patient have history of PE in 2011 and was on short course of oral Eliquis therapy
-Patient had new onset of right leg swelling and had an outpatient ultrasound showing right common femoral/femoral/popliteal/peroneal vein DVT
-On CT abdomen pelvis incidentally patient noted to having right lower lobe PE as well. No signs of RV strain
-Heparin discontinued on day 3
-Today patient is not short of breath, no pleuritic chest pain, no lower extremity swelling, erythema or pain on palpation
-Patient has history of hemorrhagic stroke in , no further issues afterward.
-Hematology evaluation for oral anticoagulation
-Hematology decided, based on risk versus benefit factors the patient would receive an IVC filter versus oral anticoagulation
-Status post IVC filter placement, postop day 1, patient reports slight pain
#Urinary incontinence
-Patient has a history of urinary retention
-For treatment of COVID infection patient was admitted to [facility] earlier this month
-Patient required catheterization for urinary retention which was removed. Patient had some hematuria/UTI per verbal report from family
-Currently patient incontinent and continue to pull off condom catheter
-Renal bladder ultrasound demonstrated no hydronephrosis, suspicious renal masses or evidence of stones, mildly distended urinary bladder
-UA with reflex culture resulted with no growth
-Continue monitoring postvoid residual and may require Dahl catheter insertion if retaining urine
-Family requested urology evaluation discussed that we will need to follow-up in office
#Memory problems
-Patient significant issues remembering things, potentially component of vascular dementia
-PT OT evaluated the patient and said that he does have impaired cognition and needs 1 assist. Also has inability to perform activities of daily living by himself and does not scan for objects when walking.
#History of hemorrhagic CVA
-Get records from [facility] to further determine the extent of bleed
-No residual weakness and patient able to ambulate without walker or cane according to spouse
-Patient on levetiracetam for seizure prophylaxis with history of hemorrhagic CVA although no reported seizures ever
#HLD
-Maintain on atorvastatin
#Anxiety/depression
-Continue on buspirone
Diet: Regular
DVT PPX - heparin drip
CODE STATUS: Full code
Anticipated Discharge: Today
Subjective/Interval History
-
Date of Service: February 06, 2024
No acute events overnight patient had IVC filter placed yesterday
Patient reports slight pain but is manageable
Objective Data
-
Labs:
Laboratory Results
02/06/24
06:21
WBC 7.0
Hgb 14.1
Hct 41.6
Plt Count 199
Sodium 142
Potassium 3.9
Chloride 105
Carbon Dioxide 23
BUN 21 H
Creatinine 0.8
Glucose 89
Calcium 9.2
Vital Signs:
Vital Signs
Temp Pulse Resp BP Pulse Ox
97.4 F 95 19 138/78 97
02/05/24 23:13 02/05/24 23:13 02/05/24 23:13 02/05/24 23:13 02/05/24 23:13
I&O
02/05/24 02/06/24 02/07/24
06:59 06:59 06:59
Intake Total 1620 / 1620 1100 / 1100
Output Total 2725 / 2725 700 / 700
Balance -1105 / -1105 400 / 400
Review of Systems
-
History Source: Patient
Constitutional: Reports No Symptoms
Respiratory: Reports No Symptoms
Cardiac: Reports No Symptoms
Abdomen/GI: Reports No Symptoms
Physical Exam
-
General: Well Developed, Well Nourished, No Apparent Distress and Conversant
Respiratory: Clear to Auscultation
Cardiac: Regular Rhythm and S1/S2
GI: Soft, Nontender, Nondistended and Normal Bowel Sounds
Musculoskeletal: No Edema
Skin: Warm and Dry
Neuro: Awake
Psych: Calm
Data Reviewed
-
Labs: Labs Reviewed by me and Discussed with Physician
[2024-02-06 12:00] VITALS: BP 123/70
--- NOTE | 2024-02-06 12:40 | W.DCSUMMARY ---
Discharge Summary
Discharge Data
Date of Admission: 02/02/24
Date of Discharge: 02/06/24
-
Pending Results: No
Hospital Course
Discharging Physician : Dandre Romo
Disposition : Home with home health
Primary care physician : Dr. Jackson
Principal Discharge diagnosis : DVT
Chronic Discharge diagnosis : History of intracranial hemorrhage, urinary incontinence, pulmonary embolism, hyperlipidemia, anxiety/depression
Hospital Course : 78-year-old male past medical history of spontaneous intracranial hemorrhage was getting physical therapy at rehab when he was noticed to have right lower extremity swelling. Outpatient ultrasound was ordered which demonstrated an
extensive DVT in the right lower extremity, common femoral, femoral, popliteal, peritoneal veins and patient was advised to come to [place] emergency department for this. In ED patient Received a CT abdomen pelvis which demonstrated a extensive
DVT in the right lower extremity, pt was started on heparin drip and admitted to the floors for further management. Patient also received a CT head which was negative for any intracranial bleeding therefore he was deemed safe to be started on
anticoagulation while in the hospital. Patient received heparin for 3 days total. Patient also has a history of urinary incontinence, in the hospital patient was incontinent and continue to pull off his condom catheter. The family requested a
urologic evaluation and it was decided that the patient would follow-up for this as an outpatient. Patient received a UA with reflex culture which demonstrated no growth, he also had a renal bladder ultrasound which demonstrated no hydronephrosis,
renal masses, stones. During his stay hematology oncology was consulted regarding the need for oral anticoagulation. Due to patient's past history of intracranial hemorrhage risk benefit analysis demonstrated that he would be better served with an
IVC filter. IR was consulted for IVC filter placement. Patient received IVC filter placement on 02/05/2024 with no complications. Patient felt well after his procedure and was able to be discharged home with home health and follow-up with his
primary care physician within 1 week of discharge and urologist in 2 to 4 weeks. Patient will follow-up to get his IVC filter removed in approximately 6 months. During the meantime patient will get home PT/OT as well as home aides to help with his
care. Patient was discharged home with his and with home health care.
Important imaging findings :
02/02/24 Peripheral vascular US, Impression:
Occlusive thrombus of the right common femoral, femoral, popliteal, and peroneal veins.
02/02/24 CT abd/pelvis, impression:
Isolated small to filling defect in the right lower lobe lateral subsegmental pulmonary artery, consistent with pulmonary embolism. No evidence to suggest right ventricular heart strain.
Right lower extremity thrombus is demonstrated to the level of the distal common femoral vein. Otherwise, external iliac and common iliac veins are patent, without evidence of thrombus. No IVC thrombus.
Mild constipation.
Mild diverticulosis without acute diverticulitis.
Cholelithiasis. No CT evidence of acute cholecystitis.
02/02/[address] without contrast, impressions:
No acute intracranial abnormality noted.
No acute intracranial hemorrhage. No extra-axial collection. Advanced chronic microvascular white matter ischemic disease. Atrophy.
02/04/24 Renal US, impression:
No hydronephrosis, suspicious renal masses or evidence of renal calculus.
Mildly distended urinary bladder.
Procedure findings :
02/05/24 IVC filter placement, impression:
1. Successful placement of retrievable inferior vena cava filter.
2. The filter should be removed when no longer necessary, preferably within 3-6 months. The importance of filter removal was stressed to the patient.
Discharge Plan
-
Patient Disposition: Home with Home Care
Discharge Diagnosis/Procedures: RLE DVT, small PE, s/p IVC filter placement, urinary incontinence
Condition: Fair
Diet: Regular
Activity: As tolerated
Driving Restrictions: No driving
Bathing Restrictions: OK to Shower
Referrals:
Sujit Rollins MD [Active] - in two to four weeks
Edinson Jackson DO [Family Provider] - in one week
Prescriptions:
Continued
atorvastatin 10 mg Tablet
10 mg PO QPM
levetiracetam 750 mg Tablet
750 mg PO BID
buspirone 5 mg tablet
5 mg PO TID
folic acid 1 mg Tablet
1 mg PO DAILY
magnesium oxide 400 mg magnesium Tablet
400 mg PO DAILY
Discharge Orders:
Discharge Patient (As Directed); Ordered 02/06/24
Ordered By: Otto Amos
Discharge Date and Time
Discharge Date/Time: 02/06/24 12:22
Print Language: SYRIAC
--- NOTE | 2024-02-06 12:51 | CM ---
Met with patient and spouse at bedside to discuss discharge plan
reported she will transport patient home
Plan: Discharge to home with Home Health PT services with [facility]
== END 2024-02-06 12:22 | disposition home health service (06) | DRG 814 ==
LOC: 2 NORTH 21:43
PROVIDERS: Physician Assistant; Radiology Diagnostic Radiology; ADMITTING PHYSICIAN Internal Medicine; ATTENDING PHYSICIAN Hospitalist; EMERGENCY PHYSICIAN Emergency Medicine; FAMILY PHYSICIAN Family Medicine
PROC: 06H03DZ Insertion of Intraluminal Device into Inferior Vena Cava, Percutaneous Approach (ICD-10-PCS; 2024-02-05)
DX: D68.69 Other thrombophilia (principal); I26.93 Single subsegmental thrombotic pulmonary embolism without acute cor pulmonale; I82.411 Acute embolism and thrombosis of right femoral vein; I82.451 Acute embolism and thrombosis of right peroneal vein; I82.431 Acute embolism and thrombosis of right popliteal vein; F32.A Depression, unspecified; I10 Essential (primary) hypertension; E78.5 Hyperlipidemia, unspecified; K59.00 Constipation, unspecified; K57.30 Diverticulosis of large intestine without perforation or abscess without bleeding; K80.20 Calculus of gallbladder without cholecystitis without obstruction; F41.9 Anxiety disorder, unspecified; R32 Unspecified urinary incontinence; Z79.899 Other long term (current) drug therapy; Z86.16 Personal history of COVID-19; Z86.73 Personal history of transient ischemic attack (TIA), and cerebral infarction without residual deficits; Z86.711 Personal history of pulmonary embolism; Z88.2 Allergy status to sulfonamides
CPT/HCPCS: 37191; 70450; 71275; 74177; 76770; 80048; 80053; 85025; 85027; 85610; 85730; 93005; 93971; 96365; 97116; 97162; 97166; 99285; C1769; C1880; Q9967

== ENCOUNTER 2024-10-14 19:11 | Emergency (ER) | payer MEDICARE, BC, SELFPAY ==
[2024-10-14 19:21] VITALS: BP 123/64
[2024-10-14 19:55] LABS: % Basophils 0.2 % (0-2); % Eosinophils 0.5 % (0-6); % Immature Granulocytes 0.3 % (0-0.5); % Lymphocytes 20.6 % (20.5-51.1); % Neutrophils 70.4 % (42.2-75.2); Absolute Lymphocytes 1.2 10^3/uL (1.2-3.4); Absolute Monocytes 0.5 10^3/uL (0.1-0.6); Absolute Neutrophils 4.1 10^3/uL (1.4-6.5); Hematocrit 42.1 % (39.0-52.0); Hemoglobin 14.2 g/dL (13.0-18.0); Mean Corp Hgb Conc. 33.7 g/dL (33.0-37.0); Mean Corpuscular Hgb 33.9 pg (27.0-31.0); Mean Corpuscular Volume 100.5 fL (80.0-94.0); Mean Platelet Volume 9.1 fL (7.4-10.4); Nucleated Red Blood Cells % 0 % (-); Platelet Count 171 10^3/uL (130-400); Red Blood Cell Count 4.19 10^6/uL (4.70-6.10); Red Cell Dist. Width 12.8 % (11.5-14.5); White Blood Cell Count 5.8 10^3/uL (4.8-10.8)
[2024-10-14 19:56] VITALS: BMI 25.9
--- NOTE | 2024-10-14 19:58 | EDRN ---
Pt's says pt dx with vascular dementia recently. went into kitchen and found pt on the floor. Pt did not know how he landed on the floor at the time. Currently, pt says he caught his foot on an ottoman and fell. ahd hard time
getting pt up and when he tried to walk he was very unsteady 'heavy like he couldn't move his foot and he kept saying hold me, hold me.' Pt at his dinner and afterwards, he was unable to get up so called daughter who advised calling 911.
says pt was in the floor at most 5 minutes. Pt says he was sitting on the couch, got up to go to the kitchen and he thinks his foot got stuck under the ottoman and he fell. No head strike or loc. Pt denies injury from fall. No headache,
visual/speech disturbance (new - has hx aphasia), numbness/tingling, cp, sob, abd pain, n/v, dizziness, urinary symptoms, fever/chills/cough.
[2024-10-14 20:00] VITALS: BP 117/68
[2024-10-14 20:06] LABS: INR 1.03; PT 13.8 Sec (11.4-14.6)
[2024-10-14 20:07] LABS: APTT 27.1 Sec (23.4-35.0)
[2024-10-14 20:09] LABS: ALT (SGPT) 36 U/L (0-50); AST (SGOT) 37 U/L (17-59); Albumin 4.2 g/dl (3.5-5.0); Alkaline Phosphatase 79 U/L (38-126); Blood Urea Nitrogen 35 mg/dl (9-20); Calcium 9.2 mg/dl (8.4-10.2); Carbon Dioxide 26 mmol/L (22-30); Chloride 109 mmol/L (98-107); Estimated Creatinine Clearance 61 ml/min; Glucose 129 mg/dl (70-99); Potassium 3.9 mmol/L (3.5-5.1); Sodium 142 mmol/L (135-145); Total Bilirubin 0.6 mg/dl (0.2-1.3); Total Protein 7.1 g/dl (6.3-8.2); eGFR > 60.00
[2024-10-14] MEDS: KEPPRA 750 MG PO (20:47)
--- NOTE | 2024-10-14 21:03 | ED.GENMED ---
History of Present Illness
General
Chief Complaint: Seizure
Time Seen by Provider: 10/14/24 19:56
History of Present Illness
History of Present Illness:
79-year-old male with history of vascular dementia, history of PE with IVC filter, history of hemorrhagic stroke, chronic dysphagia, seizure disorder on keppra presenting to the emergency department for fall. Patient reports that he was in his
room. He believes that he missed a step and tripped. His heard the commotion, found him facedown on the ground. Notes that he was awake when she found him, however seemed out of it. When she got him up and standing, seemed to have
difficulty walking with heaviness to his feet. and daughter had a difficult time getting him into the car and down the stairs. Patient and reports that symptoms have since improved. Patient's last seizure was about 2 years ago. No
report of any prolonged postictal period or convulsion. He has been compliant with his medications. Patient currently denying any chest pain, difficulty breathing, musculoskeletal pain, abdominal pain, no report of any recent fever or illness. No
additional history obtained at this time.
Past History
Past History
ED Past Medical History: HTN, Hypercholesterolemia, Other (ICH) and Other (dvt, seizure)
Social History
Tobacco: Non-smoker
Alcohol: None
Drug: None
Personal:
Living: with family
Phy Exam
Physical Exam
Physical Exam:
General: Well-appearing, no clinical signs of dehydration, nontoxic and in no acute distress
HEENT: protecting airway, pupils equal and reactive
Neck: appears supple
CV: Normal heart rate, regular rhythm
Resp: No accessory muscle use, no increased work of breathing, lungs clear to auscultation bilaterally
Abd: Soft and non-distended, no tenderness to palpation, normal bowel sounds
Extremities: No deformities, no swelling, no erythema
Neuro: alert, no focal neurologic deficit
: deferred
Rectal: deferred
Psych: Normal affect
Skin: Intact
Course
Orders/Labs/Results
Orders:
Orders
10/14/24 19:42
ECG [Electrocardiogram (*1)] Urgent
Reason for Study: Fatigue / Weakness
Cardiology Consult: Unknown
10/14/24 19:43
EKG- Treatment ONCE
10/14/24 19:46
CT Cervical Spine W/o Iv Contr Urgent
Reason For Exam: fall
CT Head W/o Iv Contrast Urgent
Comment:
Reason For Exam: fall
10/14/24 19:49
Complete Blood Count/With Diff Urgent
Comprehensive Metabolic Panel Urgent
PTT Urgent
Comment: ADD ON
Prothrombin Time Urgent
10/14/24 19:51
Add On- LAB Urgent
Tests Added?: PTT
10/14/24 20:32
Levetiracetam [Keppra] 750 mg PO NOW STA
Abnormal Lab Results
10/14/24
19:49
RBC 4.19 L 10^6/uL
(4.70-6.10)
MCV 100.5 H fL
(80.0-94.0)
MCH 33.9 H pg
(27.0-31.0)
Chloride 109 H mmol/L
(98-107)
BUN 35 H mg/dl
(9-20)
Glucose 129 H mg/dl
(70-99)
10/14/24 19:49
10/14/24 19:49
Vital Signs
Initial and Last Documented VS:
Initial Vital Signs
Temp Pulse Resp BP Pulse Ox
98.4 F 97 20 123/64 99
10/14/24 19:21 10/14/24 19:21 10/14/24 19:21 10/14/24 19:21 10/14/24 19:21
Last Documented Vital Signs
Temp Pulse Resp BP Pulse Ox
98.4 F 79 14 120/65 99
10/14/24 19:21 10/14/24 21:53 10/14/24 21:53 10/14/24 21:53 10/14/24 21:53
MDM/Problems Addressed
MDM/Problems Addressed:
79-year-old male with history of vascular dementia, history of PE with IVC filter, history of hemorrhagic stroke, chronic dysphagia, seizure disorder on keppra presenting after an unwitnessed fall with subsequent fatigue. Vital signs on arrival are
normal.
On exam patient is resting comfortably, no acute distress or discomfort. He is currently asymptomatic. No physical signs of trauma. He is awake, alert, oriented, moving all extremities equally. Per , patient does have issues with balance
given prior stroke, frequent falls, had a fall 6 weeks ago. Do suspect component of mechanical etiology. Does not appear consistent with seizure or CVA. EKG obtained, relatively unchanged from prior. Plan for screening laboratory analysis and CT
brain imaging given patient's age and comorbidities, unwitnessed nature of fall. Hemodynamically stable at this time.
22:00 - Patient's labs are unremarkable. CT is negative for acute process. Patient remains stable and asymptomatic. Feel stable for discharge. Advise following up with his neurologist. Strict return precautions communicated to patient
verbalized understanding
*EKG
Interpreted by ED Provider?: Yes
EKG Intrepretation Date: 10/14/24
EKG Intrepretation Time: 21:07
Interpretation: normal
Comparison EKG: no changes (02/01/22)
Heart Rate: 86
Rate: normal
Rhythm: sinus
Interval: normal interval and other
QRS Pattern: other (RBBB and LAFB)
Ischemia: non-specific ST changes
*Critical Care Note
Total Time (30-74mins, 75-104mins- exclusive of procedures): Not Applicable
ED Attending Note
-
Portions of this chart may have been created with voice recognition software.� Occasional wrong word or��sound alike� substitutions may have occurred due to the inherent limitations of voice recognition software.
Discharge Plan
Departure
Prescriptions:
No Action
atorvastatin 10 mg Tablet
10 mg PO QPM
levetiracetam 750 mg Tablet
750 mg PO BID@0900,2100
buspirone 5 mg tablet
5 mg PO TID
folic acid 1 mg Tablet
1 mg PO DAILY
magnesium oxide 400 mg magnesium Tablet
400 mg PO DAILY
tamsulosin [Flomax] 0.4 mg Capsule
0.4 mg PO QPM
Referrals:
Edinson Jackson DO [Family Provider] -
Interventions
Interventions:
*Risk Screen - Suicide Last Done: 10/14/24 19:57
*General Assessment Last Done: 10/14/24 19:57
*Neglect/Abuse Screening Last Done: 10/14/24 19:57
*ED- Fall Risk Assessment Last Done: 10/14/24 19:57
ED- Pulmonary Assessment Last Done: 10/14/24 20:12
ED- Neurological Assessment Last Done: 10/14/24 20:12
ED- Cardiac Assessment Last Done: 10/14/24 20:12
Discharge Date and Time
Print Language: COMORAN
[2024-10-14 21:53] VITALS: BP 120/65
[2024-10-14 22:00] VITALS: BP 119/66
== END 2024-10-14 22:25 | disposition home or self-care (01) ==
LOC: EMR 19:11
PROVIDERS: EMERGENCY PHYSICIAN Student in an Organized Health Care Education/Training Program; FAMILY PHYSICIAN Family Medicine
DX: R53.83 Other fatigue (principal); G40.909 Epilepsy, unspecified, not intractable, without status epilepticus; I10 Essential (primary) hypertension; E78.00 Pure hypercholesterolemia, unspecified; F01.50 Vascular dementia, unspecified severity, without behavioral disturbance, psychotic disturbance, mood disturbance, and anxiety; Z86.73 Personal history of transient ischemic attack (TIA), and cerebral infarction without residual deficits; Z86.718 Personal history of other venous thrombosis and embolism; Z86.711 Personal history of pulmonary embolism
CPT/HCPCS: 99284; 70450; 72125; 80053; 85025; 85610; 85730; 93005

== ENCOUNTER → 2025-01-12 13:56 | Outpatient (REF) | payer MEDICARE, BC, SELFPAY | LOC: RAD 13:56 | PROVIDERS: ATTENDING PHYSICIAN Physician Assistant Medical | DX: S09.90XA Unspecified injury of head, initial encounter (principal); W19.XXXA Unspecified fall, initial encounter; R42 Dizziness and giddiness | CPT/HCPCS: 70450 ==

== ENCOUNTER 2025-01-31 12:59 | Emergency (ER) | payer MEDICARE, BC, SELFPAY ==
[2025-01-31 13:08] VITALS: BP 127/65
--- NOTE | 2025-01-31 14:59 | ED.GENMED ---
History of Present Illness
General
Chief Complaint: DVT/Possible Blood Clot
Time Seen by Provider: 01/31/25 14:10
History of Present Illness
History of Present Illness:
79-year-old male presents to the emergency department with his for evaluation of right lower leg swelling. They followed up with her material flow engineer today who was concerned for lack of palpable pulses in the right foot and thus sent him to the
emergency department. Patient has prior history of DVTs but due to bleeding issues/intracranial hemorrhage was discontinued from anticoagulation and has an IVC filter in place. Patient denies any pain at present.
Past History
Past History
ED Past Medical History: HTN, Hypercholesterolemia, Other (ICH) and Other (dvt, seizure)
Social History
Tobacco: Non-smoker
Alcohol: None
Drug: None
Personal:
Living: with family
Review of Systems
Review of Systems
Allergies reviewed?: Yes
All Other Systems: ROS reviewed and negative except as documented in HPI and ROS
Phy Exam
Physical Exam
Physical Exam:
GEN: Well appearing, NAD, WDWN
HEENT: Oral mucosa moist, no scleral icterus
Cardiac: Regular rate
Lung: No respiratory distress, no tachypnea
MSK: No gross deformity or injuries. Moderate edema of the right lower extremity however calf compartments are soft with no tenderness, right dorsalis pedis pulse noted by Doppler
Skin: Good color, no pallor or jaundice, no rashes
Neuro: AO x3, moves all extremities freely
Psych: Calm, cooperative
Course
Orders/Labs/Results
Orders:
Orders
01/31/25 13:22
Periph Venous Lwr Ext Rt US [US Periph Venous LOWER Ext RT] Urgent
Comment:
Reason For Exam: leg swelling
Vital Signs
Initial and Last Documented VS:
Initial Vital Signs
Temp Pulse Resp BP Pulse Ox
98.1 F 65 20 127/65 98
01/31/25 13:08 01/31/25 13:08 01/31/25 13:08 01/31/25 13:08 01/31/25 13:08
Last Documented Vital Signs
Temp Pulse Resp BP Pulse Ox
98.1 F 65 20 127/65 98
01/31/25 13:08 01/31/25 13:08 01/31/25 13:08 01/31/25 13:08 01/31/25 15:00
MDM/Problems Addressed
MDM/Problems Addressed:
Ultrasound reveals chronic appearing clot in the popliteal region, no evidence for acute clot. He does have a popliteal cyst which is likely the cause of his acute edema. He has no claudication symptoms and a pulse that is noted by Doppler.
Recommend Ortho follow-up regarding the Abdi's cyst
*Pulse Oximetry
SaO2: 98
Oxygen Mode of Delivery: Room air
Patient hypoxic: no
*Critical Care Note
Total Time (30-74mins, 75-104mins- exclusive of procedures): Not Applicable
ED Attending Note
-
Portions of this chart may have been created with voice recognition software.� Occasional wrong word or��sound alike� substitutions may have occurred due to the inherent limitations of voice recognition software.
Discharge Plan
Departure
Patient Disposition: Home (Routine Discharge)
Date of Disposition: 01/31/25
Time of Disposition: 15:00
Patient with high blood pressure during this ER visit?: No
Discharge Problem:
Abdi's cyst, Chronic deep vein thrombosis (DVT)
Instructions: Abdi's Cyst (DC)
Prescriptions:
No Action
atorvastatin 10 mg Tablet
10 mg PO QPM
levetiracetam 750 mg Tablet
750 mg PO BID@0900,2100
buspirone 5 mg tablet
5 mg PO TID
folic acid 1 mg Tablet
1 mg PO DAILY
magnesium oxide 400 mg magnesium Tablet
400 mg PO DAILY
tamsulosin [Flomax] 0.4 mg Capsule
0.4 mg PO QPM
Referrals:
Edinson Jackson DO [Family Provider, Family Practice]
Interventions
Interventions:
*Risk Screen - Suicide Last Done: 01/31/25 13:21
*General Assessment Last Done: 01/31/25 15:05
*Neglect/Abuse Screening Last Done: 01/31/25 13:21
*ED- Fall Risk Assessment Last Done: 01/31/25 15:05
*ED COVID-19 Vaccine History Last Done: 01/31/25 15:05
*Nursing Disposition Last Done: 01/31/25 15:05
ED- Cardiac Assessment Last Done: 01/31/25 14:12
ED- Pulmonary Assessment Last Done: 01/31/25 14:12
ED-Peripheral Vascular Assessment Last Done: 01/31/25 14:12
ED-Skin Assessment Last Done: 01/31/25 14:12
Discharge Date and Time
Discharge Date/Time: 01/31/25 15:07
Print Language: CZECH
== END 2025-01-31 15:07 | disposition home or self-care (01) ==
LOC: EMR 12:59
PROVIDERS: EMERGENCY PHYSICIAN Emergency Medicine; FAMILY PHYSICIAN Family Medicine
DX: M71.21 Synovial cyst of popliteal space [Baker], right knee (principal); I82.411 Acute embolism and thrombosis of right femoral vein; I82.431 Acute embolism and thrombosis of right popliteal vein; I10 Essential (primary) hypertension; E78.00 Pure hypercholesterolemia, unspecified; Z95.828 Presence of other vascular implants and grafts
CPT/HCPCS: 99284; 93971

== ENCOUNTER 2025-02-03 13:52 | Inpatient (IN) | payer MEDICARE, BC, SELFPAY ==
[2025-02-03] VITALS (18 sets, daily range): BP systolic 114–168; BP diastolic 50–138
--- NOTE | 2025-02-03 12:19 | ED.GENMED ---
History of Present Illness
General
Chief Complaint: Heart Rate Problem
Source: patient and spouse
Exam Limitations: dementia
Time Seen by Provider: 02/03/25 11:57
Nursing documentation reviewed up to this point in time: agreed with
History of Present Illness
History of Present Illness:
79-year-old male with history of vascular dementia, seizures, HLD, left total knee replacement 2018 presents from PCP office for low heart rate. He denies CP, SOB, weakness, dizziness.
at bedside states he has vascular dementia so she provided much of the history. Patient is receiving OT/PT twice a week for starting 2 weeks ago for right knee pain. Yesterday the therapists found patient's heart rate to be in the 40s on 2
separate occasions and heart rate normal on recheck. Patient called PCP and got an emergent appointment today with Dr. Gaines. At the office the heart rate was low again so he was sent here for evaluation.
History of seizures and TIA in 2022, admitted to [facility], placed on blood thinners for TIA and seizures continued even on Keppra. states that her neurologist told him his seizures were caused by micro hemorrhaging and all blood
thinners were discontinued, he had an IVC filter placed and has been on Keppra 750 mg twice daily since. His last seizure was 2022
Patient denies chest pain, trouble breathing, abdominal pain, nausea, weakness or dizziness.
Patient was here 3 days ago after a fall in shower and had a negative head CT.
Past History
Past History
ED Past Medical History: HTN, Hypercholesterolemia, Other (ICH) and Other (dvt, seizure)
Social History
Tobacco: Non-smoker
Alcohol: None
Drug: None
Personal:
Living: with family
Review of Systems
Review of Systems
Allergies reviewed?: Yes
All Other Systems: ROS reviewed and negative except as documented in HPI and ROS
Phy Exam
Physical Exam
Physical Exam:
GENERAL: No acute distress. A&Ox3.
CONSTITUTIONAL: Afebrile.
EYES: clear, conjunctivae normal
ENMT: moist mucus membranes, Pharynx nl
RESPIRATORY: Regular respirations, nonlabored, lungs clear.
CARDIOVASCULAR: Regular rate and rhythm, no murmurs, no rubs. Bradycardic heart rate
GI: Soft, nontender, normal BS
MUSCULOSKELETAL: Moves with ease. Well perfused.
SKIN: Warm, dry, pink
PSYCH: Normal mood and affect. Well kept, interactive and appropriate
NEUROLOGIC: Awake, alert and oriented. No focal neurological deficits. 42
Course
Orders/Labs/Results
Orders:
Orders
02/03/25 Lunch
NPO
Allow oral meds: Yes
Allow clear liquids: No
02/03/25 11:36
ECG [Electrocardiogram (*1)] Urgent
Reason for Study: Abnormal EKG
EKG- Treatment ONCE
02/03/25 12:31
CR Chest Portable - 1 View Urgent
Comment:
Reason For Exam: bradycardia
Reason Study Needs to be Portable: Unable to Transport
02/03/25 12:36
Complete Blood Count/With Diff Urgent
Comprehensive Metabolic Panel Urgent
Magnesium Urgent
TSH Reflex To Free T4 Urgent
Comment: ADD ON
Troponin I Urgent
02/03/25 12:44
Echo 2D MMode Color/Doppler Urgent
Reason for Study: heart block, predevice
02/03/25 13:06
Fentanyl Citrate/Pf [Sublimaze] 100 mcg .ROUTE .STK-MED ONE
Lidocaine HCl/Pf [Xylocaine-Mpf 1% Vial] 50 mg .ROUTE .STK-MED ONE
Midazolam HCl [Versed] 2 mg .ROUTE .STK-MED ONE
Ondansetron Injectable [Zofran] 4 mg .ROUTE .STK-MED ONE
Propofol [Diprivan] 40 ml .ROUTE .STK-MED
02/03/25 13:07
0.9% Sod Chloride 500 ml Irr [Nss Irrigation Bottle] 500 ml .ROUTE .STK-MED
CeFAZolin 1 GRAM [Ancef] 5 ml .ROUTE .STK-MED
02/03/25 13:11
CeFAZolin 1 GRAM [Ancef] 1 gram 0.9% Sod Chloride 250 ml Irr [Nss Irrigation Bottle] 250 ml IRRIG CATH
CeFAZolin 2 GRAM [Ancef] 2 grams in 10 ml IV CATH
02/03/25 13:31
Admit/Transfer Patient As Directed
Co-Sign Provider:
Level of Care: Inpatient admission
Assign to:: IVU
Physician / Group: CBC
Diagnosis: Heart block
Reason for Hospitalization: Heart block requiring pacemaker
Expected length of stay greater than two midnights?: Yes
ELOS- Estimated Length of Stay in days: 3
I certify the patient meets the requirements for IP care: Yes
PRN Pain Medication Management As Directed
May give lesser potent ordered pain med per pt: Yes
preference::
Protocol:: Medication orders for pain may be administered in a
manner that supports deferring to patient preference
when the pt is:
- Requesting an ordered lesser potent pain medication.
Least to most potent pain medications are defined
as: acetaminophen < NSAID < tramadol < opioids
(morphine, oxycodone, hydromorphone).
- Requesting a lesser dose of the same medication IF
ORDERED.
- Requesting a less intrusive route of administration
if both routes are prescribed by the provider (PO <
IV).
02/03/25 13:33
Code Status As Directed
Resuscitation Status: Full Code
02/03/25 13:45
PTT Urgent
Prothrombin Time Urgent
02/03/25 13:51
Add On- LAB Urgent
Tests Added?: TSH reflex to T4
02/03/25 13:57
DVT Contraindication [VTE Contraindication] Routine
VTE Mechanical Device Contraindication: DVT lower extremity
Pharmocologic Contraindication: Anticoagulation not yen
Activity As Directed
Activity Level: With Assistance
INT (Intravenous Needle Therapy) As Directed
Intake/ Output As Directed
Frequency: Per unit guidelines
Vital Signs As Directed
Frequency: Per unit guidelines
Weight As Directed
Frequency: Once
Abnormal Lab Results
02/03/25
12:36
RBC 3.78 L 10^6/uL
(4.70-6.10)
Hct 38.2 L %
(39.0-52.0)
MCV 101.1 H fL
(80.0-94.0)
MCH 34.4 H pg
(27.0-31.0)
Monocytes % 9.4 H %
(1.7-9.3)
Chloride 108 H mmol/L
(98-107)
BUN 21 H mg/dl
(9-20)
02/03/25 12:36
02/03/25 12:36
Vital Signs
Initial and Last Documented VS:
Initial Vital Signs
Temp Pulse Resp BP Pulse Ox
98.2 F 42 16 150/59 99
02/03/25 11:39 02/03/25 11:39 02/03/25 11:39 02/03/25 11:39 02/03/25 11:39
Last Documented Vital Signs
Temp Pulse Resp BP Pulse Ox
98.2 F 95 15 146/80 98
02/03/25 11:39 02/03/25 16:00 02/03/25 16:00 02/03/25 15:59 02/03/25 16:01
MDM/Problems Addressed
Differential Diagnosis Includes:
Second-degree heart block
MDM/Problems Addressed:
79-year-old male with history of vascular dementia, seizures, HLD, left total knee replacement 2018 presents from PCP office for low heart rate. He denies CP, SOB, weakness, dizziness.
at bedside states he has vascular dementia so she provided much of the history. Patient is receiving OT/PT twice a week for starting 2 weeks ago for right knee pain. Yesterday the therapists found patient's heart rate to be in the 40s on 2
separate occasions and heart rate normal on recheck. Patient called PCP and got an emergent appointment today with Dr. Gaines. At the office the heart rate was low again so he was sent here for evaluation.
History of seizures and TIA in 2022, admitted to [facility], placed on blood thinners for TIA and seizures continued even on Keppra. states that her neurologist told him his seizures were caused by micro hemorrhaging and all blood
thinners were discontinued, he had an IVC filter placed and has been on Keppra 750 mg twice daily since. His last seizure was 2022
Patient denies chest pain, trouble breathing, abdominal pain, nausea, weakness or dizziness.
Patient was here 3 days ago after a fall in shower and had a negative head CT.
Afebrile, NAD
EKG showing Mobitz 2 heartblock. Pt is hemodynamically stable
13:[address]
Dr[address] Pascual in and taking pt to label paster.
*Pulse Oximetry
SaO2: 99
Patient hypoxic: no
*Critical Care Note
Total Time (30-74mins, 75-104mins- exclusive of procedures): Not Applicable
ED Attending Note
-
Portions of this chart may have been created with voice recognition software.� Occasional wrong word or��sound alike� substitutions may have occurred due to the inherent limitations of voice recognition software.
Discharge Plan
Departure
Patient Disposition: MACHINE MAINTENANCE REPAIRER
Date of Disposition: 02/03/25
Time of Disposition: 13:40
Admit to: label paster
Presentation/result/management discussed w/ accepting /DO: Ankur
Condition: Fair
Discharge Problem:
Second degree heart block
Interventions
Interventions:
*Risk Screen - Suicide Last Done: 02/03/25 11:38
*General Assessment Last Done: 02/03/25 12:00
*Neglect/Abuse Screening Last Done: 02/03/25 11:38
*ED- Fall Risk Assessment Last Done: 02/03/25 12:00
*Nursing Disposition Last Done: 02/03/25 13:15
ED- Cardiac Assessment Last Done: 02/03/25 12:00
ED- Pulmonary Assessment Last Done: 02/03/25 12:00
Discharge Date and Time
Discharge Date/Time: 02/03/25 13:15
[2025-02-03 12:48] LABS: Hematocrit 38.2 % (39.0-52.0); Hemoglobin 13.0 g/dL (13.0-18.0); Mean Corp Hgb Conc. 34.0 g/dL (33.0-37.0); Mean Corpuscular Volume 101.1 fL (80.0-94.0); Nucleated Red Blood Cells % 0 % (-); Platelet Count 149 10^3/uL (130-400); Red Cell Dist. Width 12.5 % (11.5-14.5)
[2025-02-03 13:06] LABS: ALT (SGPT) 22 U/L (0-50); AST (SGOT) 24 U/L (17-59); Albumin 3.8 g/dl (3.5-5.0); Alkaline Phosphatase 69 U/L (38-126); Blood Urea Nitrogen 21 mg/dl (9-20); Calcium 8.9 mg/dl (8.4-10.2); Carbon Dioxide 29 mmol/L (22-30); Chloride 108 mmol/L (98-107); Glucose 91 mg/dl (70-99); Magnesium 2.3 mg/dl (1.6-2.3); Potassium 4.2 mmol/L (3.5-5.1); Sodium 140 mmol/L (135-145); Total Protein 6.6 g/dl (6.3-8.2); eGFR > 60.00
[2025-02-03 13:16] LABS: Troponin I < 0.012 ng/ml
--- NOTE | 2025-02-03 13:30 | HPS.HSE ---
Family Physician
-
Family Physician: Edinson Jackson
Primary Mechanical Specialist: Dr. Jules
Chief Complaint
-
Low heart rate
History of Present Illness
Tristin ('Eyad') Yogi is an 79-year-old male (known to Dr. Jules, his primary lorry weigher) with LAFB/RBBB, hyperlipidemia, previous CVA/spontaneous intracranial hemorrhage while on aspirin, DVTs, seizure disorder, basal cell cancer, DJD, and
previous COVID-19 infection (06/2021) presenting with low heart rate from his PCP. He endorses some fatigue and weakness. His he was having vertigo symptoms. Last month he fell while in the shower. She believes he passed out. He had a CT to
confirm he did not have any bleeding given his past medical history. Today EKG showed second-degree AV block with 2:1 AV conduction and a bifascicular block. He denies chest pain.
Medical History
Past Medical History
Past Medical History: Reports Arrhythmia (PVCs), Cancer (Squamous), CVA, Hypercholesterolemia, Seizures and Other (DVTs, cerebral amyloid angiopathy, PE s/p IVC filter)
Past Surgical History: Reports Orthopedic and Urological
Social History
Tobacco: Non-smoker
Alcohol: None
Drug: None
Personal:
Living: With Family
Employment: Retired ([employer])
Family History
Family History: Not pertinent
Allergies / Home Medications
Allergies reflects when Allergies were last updated in [employer].
Home Medications with original date entered in [employer]
Allergy/Medication List:
Home medications:
Atorvastatin 10 mg p.o. every evening
Buspirone 5 mg p.o. 3 times daily
Folic acid 1 mg p.o. daily
Keppra 750 mg twice daily
Magnesium oxide 400 mg p.o. daily
Tamsulosin 0.4 mg p.o. every evening
Allergies: Sulfa
Review of Systems
-
History Source: Patient
A 12 point ROS was completed and negative except as noted: Yes
Constitutional: Reports See HPI
EENT: Reports No Symptoms
Respiratory: Reports No Symptoms
Abdomen/GI: Reports No Symptoms
: Reports No Symptoms
Musculoskeletal: Reports No Symptoms
Skin: Reports No Symptoms
Neurological: Reports No Symptoms
Endocrine: Reports No Symptoms
Hematologic/Lymphatic: Reports No Symptoms
Psych: Reports No Symptoms
Physical Exam
Vital Signs
Vital Signs
Temp Pulse Resp BP Pulse Ox
98.2 F 39 12 120/76 97
02/03/25 11:39 02/03/25 13:00 02/03/25 13:00 02/03/25 13:00 02/03/25 12:45
Physical Exam
General: Well Developed, Well Nourished, No Apparent Distress and Comfortable
HEENT: NormoCephalic and Anicteric
Respiratory: Clear and Non Labored Respirations
Cardiac: S1/S2, Bradycardia and Peripheral Edema (Lower extremity edema [unable to assess pedal's wearing shoes])
Breast: Deferred by me
GI: Soft, Non Tender and Normal Bowel Sounds
Rectal: Deferred by Provider
Genito-urinary: Deferred by me
Musculoskeletal: No Clubbing and No Cyanosis
Skin: Warm and Dry
Neuro: Awake and Alert
Hematologic/Lymphatic: No Lymphadenopathy
Psych: Calm
Laboratory Results
-
02/03/25 12:36
02/03/25 12:36
Laboratory Results
Total Bilirubin 0.7 mg/dl (0.2-1.3) 02/03/25 12:36
AST 24 U/L (17-59) 02/03/25 12:36
ALT 22 U/L (0-50) 02/03/25 12:36
Alkaline Phosphatase 69 U/L (38-126) 02/03/25 12:36
Troponin I < 0.012 ng/ml 02/03/25 12:36
Data Reviewed
-
Diagnostic Radiology: Report Reviewed by me (EKG as above)
Medical Tests (Nuc Med, Echo, EKG etc): Report Reviewed by me
Lab Data: Labs Reviewed by me
Old Records: Reviewed
Impression/Plan
-
I/P: 79M LAFB/RBBB, hyperlipidemia, previous CVA/spontaneous intracranial hemorrhage while on aspirin, DVTs, seizure disorder, basal cell cancer, DJD, and previous COVID-19 infection (06/2021) presenting with low heart rate from his PCP.
Primary Mechanical Specialist: Dr. Jules
Heart block, 2:1
- Known LAFB/RBBB being followed in the outpatient setting by Dr. Jules
- He is not on any AV allie agents
- No electrolyte abnormalities, TSH pending
- Echocardiogram
Prior CVA, spontaneous ICH with aspirin
Cerebral amyloid angiopathy
Seizure disorder, continue Keppra
Hypercholesterolemia, continue atorvastatin
Prior PE, IVC filter in place, does not tolerate anticoagulation
DVTs, chronic, does not tolerate anticoagulation as above
Dementia
--- NOTE | 2025-02-03 13:45 | EDRN ---
1309 syrup machine laborer called to get report on patient shortly after Dr. Pascual left the bedside telling this RN, patient and his time was unknown when he would go to syrup machine laborer. While giving report Dr. Pascual arrived to this RN and I told the syrup machine laborer
nurse he is here and wants to go now. Took patient with monitor and defibrillator to the syrup machine laborer at that very moment. Upon arriving at the syrup machine laborer the table needed to be rebooted, while waiting this RN initiated a 20g IV in the left wrist while
syrup machine laborer staff shaved patient and readied supplies. This RN was unable to complete the preoperative checklist with the patient and his due to staff desire to have patient in the lab immediately. Patient stable throughout transport and transfer
to syrup machine laborer table.
[2025-02-03 14:04] LABS: INR 1.09; PT 14.4 Sec (11.4-14.6)
[2025-02-03 14:05] LABS: APTT 28.1 Sec (23.4-35.0)
--- NOTE | 2025-02-03 15:10 | ITS.CL.PACE ---
[facility] [employer] - Pacemaker Implant
Pacemaker Implant
Procedure Report:
Date of Procedure: February 03, 2025.
Procedure: Pacemaker Implantation. Left pper extremity venogram.
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
Performing physician: Yuval Pascual MD, [facility].
Implants:
Pulse Generator: Medtronic; Model# [id number]; Serial# [id number].
RV Lead: Medtronic; Model# 5076-52cm; Serial# [id number].
RV Lead: Medtronic; Model# 3830-69cm; Serial# [id number].
Technique: A time out was performed. A 10 mL upper extremity venogram demonstrated patent left axillary, cephalic, and subclavian veins. The procedure site was identified. The patient was anesthetized by the anesthesia service. Preoperative
cefazolin was administered. The patient was prepped and draped in the usual fashion. Local anesthetic was applied to the left prepectoral subcutaneous tissue. A 3 inch incision was made along the left deltopectoral groove. Dissection was carried to
the fascia. The left cephalic vein was easily isolated and proximal and distal control with 2-0 Vicryl suture. Using a micropuncture needle to access the cephalic vein under direct visualization a wire was advanced into the central circulation. A 7
Fr introducer was placed to allow two 0.35 J wires to be advanced. The leads were introduced with hemostatic peel away introducer sheaths. The RV lead was placed using utilizing the Szl.it His delivery catheter ([id number]) that was advanced to the
left bundle area as confirmed by fluoroscopy in the OCCITAN and LANDON projections. The lead tip was advanced. PVC morphology was reviewed. When a satisfactory location was identified (W pattern observed) the lead was screwed into position with serial
turns. Septal engagement was confirmed with gentle torque applied to the guide sheath. After each series of turns (2-3) unipolar sensed morphology and impedance, and paced morphology of V1 was analyzed. The lead was further advanced until
satisfactory morphology and electrical characteristics were confirmed. The RV lead was placed in the first location evaluated. The long guiding sheath was cut and removed from the RV without change in lead position, impedance, sensing, or capture.
The ventricular lead was secured to the pectoralis muscle and fascia with two 0-silk sutures. The atrial lead was placed in the right atrial appendage. 8 volt pacing from each lead did not capture the diaphragm. The atrial leads was secured to the
pectoralis muscle and fascia. A subcutaneous pocket was created with Bovie cautery. Hemostasis was excellent. The leads were appropriately attached to the device. The pocket was irrigated with antibiotic solution. The device and leads were placed in
the pocket. The incision was closed in three layers with absorbable suture. Steri-strips and a silver impregnated dressing were placed. Estimated blood loss was less than 20 ml. There were no complications. The device was then interrogated after
skin closure.
Lead Analysis:
RA lead: P: 2.4 mV; Threshold: 0.5 V @ 0.4 ms; Impedance: 677 ohms.
RV lead (unipolar): R: 6.4 mV; Threshold: 0.5 V @ 0.4 ms; Impedance: 400 ohms. Similar values bipoar.
Paced QRS characteristics: V1 has QR morphology and measures 134 ms in duration, LVAT (stim to peak V5/V6) is 60 ms, and R peak V1 to R peak V6 is 50 ms.
Final Programming: DDDR 60-130 bpm.
Conclusion: Uncomplicated Medtronic pacemaker implant. The pacing system is MRI conditional. Successful LBB area capture with excellent results.
Recommendation: Routine post pacemaker care.
cc: Edinson Stern DO and Neftali Jules MD.
--- NOTE | 2025-02-03 17:58 | PTCARENOTE ---
Received patient from PACU after PPM left upper chest. Patient placed closer to the nurse's station in room 2255 due to his hx of a recent fall and dementia. Oriented to the room and plan of care, bed alarm placed on the bed for safety, call saldivar in
reach. Dressing left upper chest is dry and intact. took the patient's belongings and will be back tomorrow.
[2025-02-03] MEDS: FLOMAX 0.4 MG PO (18:15)
[2025-02-03] MEDS: LIPITOR 10 MG PO (18:16)
[2025-02-03] MEDS: BUSPAR 5 MG PO ×2 (19:09→21:16)
[2025-02-03] MEDS: KEPPRA 750 MG PO (21:16)
--- NOTE | 2025-02-03 22:13 | PTCARENOTE ---
Patient received at change of shift resting in the bed. Left anterior chest wall aquacell and pressure dressing in place over PPM site. LUE immobilizer in place. The patient is confused and forgetful, alert to self only and is hard of hearing. Bed
alarm in place. The patient denies pain or discomfort. Requires frequent redirection as he attempts to exit the bed frequently. Vpaced on telemetry. Oxygen saturation 94% on room air. Call saldivar within reach. Bed alarm armed. Bed in lowest position
and wheels locked. Care ongoing.
[2025-02-04 02:07] VITALS: BP 152/82
[2025-02-04 02:12] VITALS: BMI 25.8
[2025-02-04 03:05] LABS: Hematocrit 41.2 % (39.0-52.0); Hemoglobin 13.9 g/dL (13.0-18.0); Mean Corp Hgb Conc. 33.7 g/dL (33.0-37.0); Mean Corpuscular Volume 100.7 fL (80.0-94.0); Platelet Count 167 10^3/uL (130-400); Red Cell Dist. Width 12.4 % (11.5-14.5)
[2025-02-04 03:28] LABS: Blood Urea Nitrogen 17 mg/dl (9-20); Calcium 9.0 mg/dl (8.4-10.2); Carbon Dioxide 26 mmol/L (22-30); Chloride 110 mmol/L (98-107); Estimated Creatinine Clearance 76 ml/min; Glucose 95 mg/dl (70-99); Magnesium 2.2 mg/dl (1.6-2.3); Potassium 4.5 mmol/L (3.5-5.1); Sodium 140 mmol/L (135-145); eGFR > 60.00
[2025-02-04] MEDS: TYLENOL 650 MG PO (03:33)
[2025-02-04 07:39] VITALS: BP 140/72
[2025-02-04 07:47] VITALS: BP 140/72
--- NOTE | 2025-02-04 08:24 | W.PN.UPDATE ---
Addendum entered and electronically signed by Sarah Beth Nails MD 02/04/25 09:48:
I saw and evaluated the patient, and I provided the substantive portion of the medical decision making.
I reviewed and agree with the note by [ ] and it accurately reflects our care.
I personally performed the medical decision making of the this encounter and my assessment and plan is below:
Comment: 79-year-old gentleman with past medical history of OBS presented with heart block, status post permanent pacemaker implant 02/03/[address] Pascual. He has no complaints. On exam he has a regular rate and rhythm normal S1-S2 no murmurs
gallops or appreciated lungs clear to auscultation bilaterally. Incision site well-healed with a Aquacel dressing in place. EKG is a sensed V paced x-ray was without any sign of pneumo peritoneum or pneumothorax. Pacemaker leads in right atrium
and right ventricle.
Okay to discharge home with follow-up for permanent pacemaker. Pacemaker precautions in place. Follow-up visit with Dr. Jules
Original Note:
Update Note
Progress Note Update
Mr. 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 His left pectoral incision site is stable with intact Aquacell dressing w/o
drainage. His pressure dressing was removed this am. Vitals, labs and f/u CXR are stable. He is stable for d/c home today, with f/u as scheduled for incision check in our outpatient office then f/u with Dr. Jules as scheduled.
--- NOTE | 2025-02-04 08:28 | W.DS.TRANS ---
DC Summary - Sales Exec
-
Discharge Instructions:
Discharge Diagnosis/Procedures Pacemaker implant
Diet Low Cholesterol
Driving Restrictions No driving for 1 week
Bathing Restrictions OK to Shower
Instructions:
Stand-Alone Forms: DC Inst - Implanted Device
Changes to Home Medications: No
Discharge Medications:
DC Medications w/original date entered in [employer]
atorvastatin 10 mg tablet 10 mg PO QPM High Cholesterol 12/10/21
levetiracetam 750 mg tablet 750 mg PO BID@0900,2100 Seizures 12/10/21
buspirone 5 mg tablet 5 mg PO TID Depression 02/02/24
folic acid 1 mg tablet 1 mg PO DAILY Supplement 02/02/24
magnesium oxide 400 mg PO DAILY Supplement 02/02/24
tamsulosin 0.4 mg capsule (Flomax) 0.4 mg PO QPM 10/14/24
acetaminophen 325 mg tablet 650 mg (2 x 325 mg) PO Q4HPRN PRN MILD PAIN #30 tabs 02/04/25
Home Medication Changes
none
Pending Results: No
[2025-02-04] MEDS: BUSPAR 5 MG PO (09:04)
[2025-02-04] MEDS: MAGNESIUM OXIDE 400 MG PO (09:05)
[2025-02-04] MEDS: FOLVITE 1 MG PO (09:05)
[2025-02-04] MEDS: KEPPRA 750 MG PO (09:05)
[2025-02-04 10:45] VITALS: BP 125/67
[2025-02-04 10:46] VITALS: BP 125/67
--- NOTE | 2025-02-04 11:51 | PTCARENOTE ---
02/04/25 1130 D/C order given per Regulatory Affairs Assistant. IV and Telem pack removed. Pt's and daughter at bedside. Reviewed discharge instructions with . All questions were answered. Pt urinated prior to leaving. Vitals stable, afebrile. Walked patient
in hallway with walker. No complaints, feeling good. Pt escorted out in wheelchair w/RN and .
== END 2025-02-04 12:04 | disposition home or self-care (01) | DRG 243 ==
LOC: IVU 13:52
PROVIDERS: Nurse Practitioner Adult Health; Registered Nurse; ADMITTING PHYSICIAN Internal Medicine Cardiovascular Disease; EMERGENCY PHYSICIAN Student in an Organized Health Care Education/Training Program; FAMILY PHYSICIAN Family Medicine
PROC: 02HK3JZ Insertion of Pacemaker Lead into Right Ventricle, Percutaneous Approach (ICD-10-PCS; 2025-02-03)
PROC: 02H63JZ Insertion of Pacemaker Lead into Right Atrium, Percutaneous Approach (ICD-10-PCS; 2025-02-03)
PROC: 0JH606Z Insertion of Pacemaker, Dual Chamber into Chest Subcutaneous Tissue and Fascia, Open Approach (ICD-10-PCS; 2025-02-03)
PROC: B51N1ZZ Fluoroscopy of Left Upper Extremity Veins using Low Osmolar Contrast (ICD-10-PCS; 2025-02-03)
DX: I44.2 Atrioventricular block, complete (principal); E85.4 Organ-limited amyloidosis; F01.50 Vascular dementia, unspecified severity, without behavioral disturbance, psychotic disturbance, mood disturbance, and anxiety; G40.909 Epilepsy, unspecified, not intractable, without status epilepticus; E78.00 Pure hypercholesterolemia, unspecified; M25.561 Pain in right knee; I45.2 Bifascicular block; I68.0 Cerebral amyloid angiopathy; I10 Essential (primary) hypertension; Z96.652 Presence of left artificial knee joint; Z86.73 Personal history of transient ischemic attack (TIA), and cerebral infarction without residual deficits; Z95.828 Presence of other vascular implants and grafts; Z86.718 Personal history of other venous thrombosis and embolism; Z86.711 Personal history of pulmonary embolism; Z85.828 Personal history of other malignant neoplasm of skin; Z86.16 Personal history of COVID-19; Z91.81 History of falling
CPT/HCPCS: 33208; 71045; 80048; 80053; 83735; 84443; 84484; 85025; 85027; 85610; 85730; 93005; 93306; 93971; 99285; C1769; C1785; C1887; C1898; Q9967